=== PATIENT | male | born 1945 | race Caucasian/White ===

== ENCOUNTER 2020-05-28 12:41 | Outpatient (CLI) | payer MEDICARE, SELFPAY ==
--- NOTE | 2020-05-28 12:57 | ECHO_ITS ---
Patient Info Name: Bernardo Mclean Age: 75 years : 1945 Gender: Male Ht: 71 in Wt: 200 lbs BSA: 2.15 m2 HR: 55 bpm BP: 143 / 87 mmHg Technical Quality: Good Exam Date: 05/28/2020 1:14 PM Exam Location: [facility] Patient Status: Outpatient Admit Date: 05/28/2020 Staff Ordering Physician: Rayna Jackson NP Healthcare Advisory Services Manager: Jeaneth Calloway RDCS Attending Provider: Rayna Jackson NP Referring Physician: Manuel JOSE; Exam Type: CA echo doppler color flow Study Info Indications R01.1 - Cardiac murmur, unspecified Complete two-dimensional, color flow and Doppler transthoracic echocardiogram is performed. Summary 1. Complete two-dimensional, color flow and Doppler transthoracic echocardiogram is performed. 2. Left ventricular chamber dimension is normal. 3. Left ventricular systolic function is normal, estimated at 65-70%. 4. Ventricular septum is sigmoid shaped. 5. The left ventricular diastolic function is grade I diastolic dysfunction. 6. E/e' 15 is elevated. 7. Global longitudinal strain is mildly abnormal at -16.4%. 8. Left atrial chamber dimension is mildly enlarged. 9. There is severe aortic valve sclerosis. 10. There is mild aortic valve regurgitation. 11. There is moderate to severe aortic valve stenosis with a peak velocity of 272 cm/s, mean gradient of 16 mmHg, and aortic valve area of 1.0 cm2. By planimetry, NELL is 1.1 cm2. 12. The mitral valve has mildly calcified annulus. 13. There is trace mitral valve regurgitation. 14. There is trace tricuspid valve regurgitation. 15. No pulmonary hypertension, estimated pulmonary arterial systolic pressure is 25 mmHg. Left Ventricle Ventricular septum is sigmoid shaped. E/e' 15 is elevated. Global longitudinal strain is mildly abnormal at -16.4%. Left ventricular chamber dimension is normal. Left ventricular systolic function is normal, estimated at 65-70%. The left ventricular diastolic function is grade I diastolic dysfunction. Right Ventricle Right ventricular chamber dimension is normal. Right ventricular systolic function is normal. Left Atria Left atrial chamber dimension is mildly enlarged. Right Atria Right atrial chamber dimension is normal. Aortic Valve There is moderate to severe aortic valve stenosis with a peak velocity of 272 cm/s, mean gradient of 16 mmHg, and aortic valve area of 1.0 cm2. By planimetry, NELL is 1.1 cm2. The aortic valve is trileaflet. There is severe aortic valve sclerosis. There is mild aortic valve regurgitation. Pulmonic Valve There is no pulmonic regurgitation. Mitral Valve The mitral valve has mildly calcified annulus. There is no mitral valve stenosis. There is trace mitral valve regurgitation. Tricuspid Valve There is trace tricuspid valve regurgitation. No pulmonary hypertension, estimated pulmonary arterial systolic pressure is 25 mmHg. Pericardium/Pleural There is no pericardial effusion. Inferior Vena Cava Normal inferior vena cava with >50% collapse upon inspiration consistent with normal right atrial pressure, 5 mmHg. Aorta The aortic root size at the sinus of Valsalva is normal. Left Ventricular Outflow Tract Name Value Normal LVOT 2D LVOT Diameter
== END 2020-05-28 12:42 | disposition home or self-care (01) ==
PROVIDERS: PCP Nurse Practitioner; Visit Provider Nurse Practitioner
DX: R01.1 Cardiac murmur, unspecified (principal); I34.0 Nonrheumatic mitral (valve) insufficiency
CPT/HCPCS: 93306

== ENCOUNTER 2020-06-09 09:30 | Outpatient (CLI) | payer MEDICARE, SELFPAY ==
--- NOTE | ~2020-06-09 | US_ITS ---
EXAMINATION: US carotid duplex BI DATE: 06/09/2020 10:22 INDICATION: Left carotid bruit. TECHNIQUE: Grayscale, color Doppler, and pulsed Doppler images of the cervical carotid arteries were obtained. The degree of vessel stenosis is placed in one of the following categories: normal, <50%, 5 0-69%, >=70% but less than near-occlusion, near-occlusion, or total occlusion. Note that percent sten osis relative to normal distal artery lumen diameter is indirectly measured from velocity measurement s as described by Arturo, et al. Radiology 2003; 229:340-346. COMPARISON: Ultrasound 07/18/2007 FINDINGS: RIGHT: The right common carotid artery (CCA) peak systolic velocity (PSV) is 83 cm/s. The right internal car otid artery (ICA) PSV is 86 cm/s. The right ICA end-diastolic velocity (EDV) is 21 cm/s. The right IC A/CCA PSV ratio is 1.0. Grayscale and color Doppler images yield an estimate of <50% diameter reducti on from plaque in the ICA. There is antegrade flow in the right vertebral artery. LEFT: The left CCA PSV is 97 cm/s. The left ICA PSV is 68 cm/s. The left ICA EDV is 19 cm/s. The left ICA/C CA PSV ratio is 0.7. Grayscale and color Doppler images yield an estimate of <50% diameter reduction from plaque in the ICA. There is antegrade flow in the left vertebral artery. IMPRESSION: 1. <50% stenosis in the right internal carotid artery. 2. <50% stenosis in the left internal carotid artery. Reviewed, dictated and finalized at location A.
== END 2020-06-09 09:31 | disposition home or self-care (01) ==
LOC: ANHIMG 09:33
PROVIDERS: PCP Nurse Practitioner; Visit Provider Internal Medicine Cardiovascular Disease
DX: I65.23 Occlusion and stenosis of bilateral carotid arteries (principal)
CPT/HCPCS: 93880

== ENCOUNTER 2021-04-26 00:36 | Day surgery (SDC) | payer MEDICARE, SELFPAY ==
[2021-04-18 12:45] VITALS: BMI 27.8
[2021-04-26 10:05] VITALS: BP 113/70; PULSE 72; RESP 20; TEMP 36.2; O2SAT 99
[2021-04-26] MEDS: LACTATED RINGERS 1,000 ML 150 ML IV CONT (10:09)
--- NOTE | 2021-04-26 11:03 | WPDANESEPPF ---
Anes - Initial Pre Proc Eval Procedure: Operation Date: 04/26/21 11:30 Proposed Procedures p Screening Colonoscopy - Pino Betts MD Date/Time: 04/26/21 11:03 Surgeon: Pino Betts MD Pre Op Diagnosis: hx of colon ca Patient Data Age: 76 Gender: M Height: 1.8 m Weight: 86.2 kg Last Vital Signs Temp 97.2 F L 04/26/21 10:05 Pulse 72 04/26/21 10:05 Resp 20 04/26/21 10:05 BP 113/70 04/26/21 10:05 Pulse Ox 99 04/26/21 10:05 Allergies Allergy/AdvReac Type Severity Reaction Status Date / Time No Known Allergies Allergy Unverified 04/26/21 10:03 Home Medications Medication Instructions Recorded Confirmed Type omega-3 fatty acids 1,000 mg 1,000 mg PO DAILY 08/04/19 04/20/21 History capsule vitamin B complex 1 tablet PO DAILY 08/04/19 04/20/21 History cholecalciferol (vitamin D3) 25 25 mcg PO DAILY 11/30/20 04/20/21 History mcg (1,000 unit) capsule vitamins A,C,Y-ixyd-kezhyf 14,320 1 cap PO BID 11/30/20 04/20/21 History unit-226 mg-200 unit capsule atorvastatin 40 mg tablet 40 mg PO DAILY #90 tablet 01/27/21 04/20/21 Rx paroxetine HCl 10 mg tablet See Rx Instructions .ROUTE 01/28/21 04/20/21 Rx .COMPLEX #90 tablet Patient hx anesthesia problems: none Family hx anesthesia problems: none PMFSH Past Medical History Medical History Aortic stenosis Hyperlipidemia LDL goal <100 (~06/2016) Malignant neoplasm of rectum Vascular dementia (~02/2019) Vitamin B12 deficiency (~01/2017) Surgical History Surgical History H/O laminectomy (~02/27/17) H/O laminectomy (~06/08/15) History of back surgery (~01/2019) right L3-L4-L5 microdecompression for synovial cyst History of cataract removal with insertion of prosthetic lens (~2005) right History of cholecystectomy (~2002) History of enucleation of left eyeball (~194) History of rectal surgery (~1999) History of repair of rotator cuff History of vasectomy History of wisdom tooth extraction Hx of appendectomy Hx of colonoscopy (~08/09/16) Hx of hernia repair (~2007) Family History Family History Sibling Family history of pancreatic cancer, Onset Age: 65 Social History Social History Smoking status: Never smoker Second hand tobacco smoke exposure: No Alcohol intake: never Substance use: never Substance use type: does not use Living arrangements: with family Gender identity (if verbalized by the patient): Male Spiritual care concerns: No (Active in his [employer] vijay) Agree to blood products: Yes Anes - Eval Final PreProcedure Day of Procedure 04/26/21 11:03 Patient weight: normal Heart: regular rate and rhythm Lungs: clear to auscultation Airway: Mallampati scale class II Neurological: alert and oriented Last oral intake: >/= 8 hours ASA classification: III Emergent: no Anesthetic plan: proceed Anesthesia type and monitoring: general GIVS and standard monitoring Informed Consent: The patient's anesthetic plan and its attendant risks and benefits were discussed with the patient/family/POA. Questions were solicited and answers provided to the satisfaction of the patient/family/POA.
--- NOTE | 2021-04-26 11:42 | PM.HPGS ---
History of Present Illness History of Present Illness Consent: Risks, benefits, and alternatives have been discussed and questions answered. Patient agrees to proceed with procedure. Chief complaint: hx of colon ca Narrative: Bernardo Mclean is a 76 year old male with CRC 1999's, getting colonoscopies every 3 years. Review of Systems Constitutional: Constitutional: Denies headache(s) and Denies weakness Eyes: Eyes: Denies blurry vision ENT: Reports Normal hearing present, Denies headache(s) and Denies neck pain Cardiovascular: Cardiovascular: Denies chest pain and Denies dyspnea Respiratory: Respiratory: Denies dyspnea Gastrointestinal: Gastrointestinal: Reports no additional gastrointestinal complaints Genitourinary: Genitourinary: Denies dysuria Musculoskeletal: Musculoskeletal: Denies neck pain Integumentary/Breasts: Skin/Breast: Denies dry skin Neurologic: Reports Normal hearing present, Denies headache(s) and Denies weakness Psychiatric: Psychiatric: Denies anxiety Endocrine: Endocrine: Denies change in body appearance Hematologic/Lymphatic: Hematologic/Lymphatic: Denies easy bleeding Allergic/Immunologic: Allergic/Immunologic: Denies urticaria PMFSH Past Medical History Medical History Aortic stenosis Hyperlipidemia LDL goal <100 (~06/2016) Malignant neoplasm of rectum Vascular dementia (~02/2019) Vitamin B12 deficiency (~01/2017) Surgical History Surgical History H/O laminectomy (~02/27/17) H/O laminectomy (~06/08/15) History of back surgery (~01/2019) right L3-L4-L5 microdecompression for synovial cyst History of cataract removal with insertion of prosthetic lens (~2005) right History of cholecystectomy (~2002) History of enucleation of left eyeball (~1947) History of rectal surgery (~1999) History of repair of rotator cuff History of vasectomy History of wisdom tooth extraction Hx of appendectomy Hx of colonoscopy (~08/09/16) Hx of hernia repair (~2007) Family History Family History Sibling Family history of pancreatic cancer, Onset Age: 65 Social History Social History Smoking status: Never smoker Second hand tobacco smoke exposure: No Alcohol intake: never Substance use: never Substance use type: does not use Living arrangements: with family Gender identity (if verbalized by the patient): Male Spiritual care concerns: No (Active in his [employer] vijay) Agree to blood products: Yes Meds Home Medications and Allergies Home Medications Medication Instructions Recorded Confirmed Type omega-3 fatty acids 1,000 mg 1,000 mg PO DAILY 08/04/19 04/20/21 History capsule vitamin B complex 1 tablet PO DAILY 08/04/19 04/20/21 History cholecalciferol (vitamin D3) 25 25 mcg PO DAILY 11/30/20 04/20/21 History mcg (1,000 unit) capsule vitamins A,C,L-ixaf-ecsfmd 14,320 1 cap PO BID 11/30/20 04/20/21 History unit-226 mg-200 unit capsule atorvastatin 40 mg tablet 40 mg PO DAILY #90 tablet 01/27/21 04/20/21 Rx paroxetine HCl 10 mg tablet See Rx Instructions .ROUTE 01/28/21 04/20/21 Rx .COMPLEX #90 tablet Allergies Allergy/AdvReac Type Severity Reaction Status Date / Time No Known Allergies Allergy Unverified 04/26/21 10:03 Vital Signs Vital Signs - 24 hr 04/26/21 10:05 Temperature 97.2 F L Pulse Rate 72 Respiratory Rate 20 Blood Pressure 113/70 Pulse Oximetry 99 Exam Const: General: comfortable and no acute distress HENMT: General nose exam: Normal nares present Eyes: General: appearance normal, both eyes and all related structures Neck: Neck: no JVD Resp: Auscultation: clear to auscultation bilaterally Cardio: Rate: regular rate Rhythm: regular rhythm GI: Inspection: non-distended GI Palp: Yes Soft to palpat
[2021-04-26 12:08] VITALS: BP 119/66; PULSE 59; RESP 13; O2SAT 97
[2021-04-26 12:18] VITALS: BP 119/72; PULSE 59; RESP 20; O2SAT 97
[2021-04-26 12:28] VITALS: BP 127/68; PULSE 56; RESP 24; O2SAT 97
== END 2021-04-26 12:49 | disposition home or self-care (01) ==
PROVIDERS: PCP Nurse Practitioner; Visit Provider Internal Medicine Gastroenterology
PROC: 0DJD8ZZ Inspection of Lower Intestinal Tract, Via Natural or Artificial Opening Endoscopic (ICD-10-PCS; CPT 45378; principal; 2021-04-26 11:30)
DX: Z12.11 Encounter for screening for malignant neoplasm of colon (principal); D12.3 Benign neoplasm of transverse colon; I35.0 Nonrheumatic aortic (valve) stenosis; E78.5 Hyperlipidemia, unspecified; E53.8 Deficiency of other specified B group vitamins; F01.50 Vascular dementia, unspecified severity, without behavioral disturbance, psychotic disturbance, mood disturbance, and anxiety; Z85.038 Personal history of other malignant neoplasm of large intestine; Z98.41 Cataract extraction status, right eye; Z96.1 Presence of intraocular lens; Z90.49 Acquired absence of other specified parts of digestive tract; Z90.01 Acquired absence of eye
CPT/HCPCS: 45385; 88305; J2001; J2704; J7120

== ENCOUNTER 2021-06-02 12:01 | Outpatient (CLI) | payer MEDICARE, SELFPAY ==
--- NOTE | 2021-06-02 12:44 | ECHO_ITS ---
Patient Info Name: Bernardo Mclean Age: 76 years : 1945 Gender: Male Ht: 71 in Wt: 195 lbs BSA: 2.12 m2 HR: 69 bpm BP: 131 / 84 mmHg Heart Rhythm: Sinus Rhythm Exam Date: 06/02/2021 12:55 PM Exam Location: [facility] Patient Status: Outpatient Admit Date: 06/02/2021 Staff Ordering Physician: Eben Fried DO Attending Provider: Eben Fried DO Referring Physician: Corky JAMES; Exam Type: CA echo doppler color flow Study Info Indications I35.0 - Nonrheumatic aortic (valve) stenosis Complete two-dimensional, color flow and Doppler transthoracic echocardiogram is performed. Summary 1. Complete two-dimensional, color flow and Doppler transthoracic echocardiogram is performed. 2. Left ventricular chamber dimension is normal. 3. Left ventricular systolic function is normal, estimated at 60-65%. 4. The left ventricular diastolic function is grade I diastolic dysfunction. 5. E/e' 17 is elevated. 6. Left atrial chamber dimension is mildly enlarged. 7. There is severe aortic valve sclerosis. 8. There is moderate to severe aortic valve stenosis with a peak velocity of 314 cm/s, mean gradient of 22 mmHg, and aortic valve area of 0.9 cm2. 9. There is trace aortic valve regurgitation. 10. No pulmonary hypertension, estimated pulmonary arterial systolic pressure is 16 mmHg. Left Ventricle E/e' 17 is elevated. Left ventricular chamber dimension is normal. Left ventricular systolic function is normal, estimated at 60-65%. The left ventricular diastolic function is grade I diastolic dysfunction. Right Ventricle Right ventricular chamber dimension is normal. Right ventricular systolic function is normal. Left Atria Left atrial chamber dimension is mildly enlarged. Right Atria Right atrial chamber dimension is normal. Aortic Valve The aortic valve is trileaflet. There is severe aortic valve sclerosis. There is moderate to severe aortic valve stenosis with a peak velocity of 314 cm/s, mean gradient of 22 mmHg, and aortic valve area of 0.9 cm2. There is trace aortic valve regurgitation. Pulmonic Valve There is no pulmonic regurgitation. Mitral Valve There is no mitral valve stenosis. There is no mitral valve regurgitation. Tricuspid Valve There is no tricuspid valve regurgitation. No pulmonary hypertension, estimated pulmonary arterial systolic pressure is 16 mmHg. Pericardium/Pleural There is no pericardial effusion. Inferior Vena Cava Normal inferior vena cava with >50% collapse upon inspiration consistent with normal right atrial pressure, 5 mmHg. Aorta The aortic root size at the sinus of Valsalva is normal. Left Ventricular Outflow Tract Name Value Normal LVOT 2D LVOT Diameter 1.9 cm LVOT Doppler LVOT Peak Gradient 4 mmHg LVOT Mean Gradient 2 mmHg LVOT VTI 26 cm LVOT VTI/AV VTI Ratio 0.3 LVOT Stroke Volume 74 ml LVOT CO 3.7 l/min LVOT CI 1.7 l/min/m2
== END 2021-06-02 12:02 | disposition home or self-care (01) ==
PROVIDERS: PCP Nurse Practitioner; Visit Provider Internal Medicine Cardiovascular Disease
DX: I35.0 Nonrheumatic aortic (valve) stenosis (principal); I70.0 Atherosclerosis of aorta
CPT/HCPCS: 93306

== ENCOUNTER 2022-06-05 08:05 | Outpatient (CLI) | payer MEDICARE, SELFPAY ==
--- NOTE | 2022-06-05 08:13 | ECHO_ITS ---
Patient Info Name: Chad Mclean Age: 77 years : 1945 Gender: Male Ht: 71 in Wt: 200 lbs BSA: 2.15 m2 HR: 59 bpm BP: 148 / 91 mmHg Technical Quality: Good Exam Date: 06/05/2022 8:42 AM Exam Location: [facility] Patient Status: Outpatient Admit Date: 06/05/2022 Staff Ordering Physician: Eben Fried DO Sausage Cutter: Chaka Flores RDCS, RT Attending Provider: Eben Fried DO Referring Physician: Corky JAMES; Exam Type: CA echo dop color flow w con Study Info Indications I35.0 - Nonrheumatic aortic (valve) stenosis Complete two-dimensional, color flow and Doppler transthoracic echocardiogram is performed. Strain analysis performed. Summary 1. Complete two-dimensional, color flow and Doppler transthoracic echocardiogram is performed. 2. Left ventricular chamber dimension is normal. 3. Left ventricular systolic function is normal, estimated at 60-65%. 4. There is moderately increased left ventricular wall thickness. 5. The left ventricular diastolic function is grade I diastolic dysfunction. 6. E/e' 16 is elevated. 7. Global longitudinal strain is normal at -18.5%. 8. There is severe aortic valve sclerosis. 9. There is moderate to severe aortic valve stenosis with a peak velocity of 311.69 cm/s, mean gradient of 19 mmHg, and aortic valve area of 1.05 cm2. 10. There is mild aortic valve regurgitation. 11. The mitral valve has mildly calcified annulus. 12. There is trace mitral valve regurgitation. 13. There is trace tricuspid valve regurgitation. Left Ventricle E/e' 16 is elevated. Global longitudinal strain is normal at -18.5%. Left ventricular chamber dimension is normal. Left ventricular systolic function is normal, estimated at 60-65%. There is moderately increased left ventricular wall thickness. The left ventricular diastolic function is grade I diastolic dysfunction. Right Ventricle Right ventricular systolic function is normal and with normal TAPSE 2.2 cm. Right ventricular chamber dimension is normal. Left Atria Left atrial chamber dimension is normal. Right Atria Right atrial chamber dimension is normal. Aortic Valve The aortic valve is probable trileaflet. There is severe aortic valve sclerosis. There is moderate to severe aortic valve stenosis with a peak velocity of 311.69 cm/s, mean gradient of 19 mmHg, and aortic valve area of 1.05 cm2. There is mild aortic valve regurgitation. Pulmonic Valve There is no pulmonic regurgitation. Mitral Valve The mitral valve has mildly calcified annulus. There is no mitral valve stenosis. There is trace mitral valve regurgitation. Tricuspid Valve RVSP is not calculated due to an inadequate TR jet. There is trace tricuspid valve regurgitation. Pericardium/Pleural There is no pericardial effusion. Inferior Vena Cava Inferior vena cava is not well visualized. Aorta The aortic root size at the sinus of Valsalva is normal. Left Ventricular Outflow Tract Name Value Normal LVOT 2D LVOT Diameter 2.05 cm LVOT Doppler LVOT Peak Gradient 3 mmHg LVOT Mean Gradient 1 mmHg
== END 2022-06-05 08:06 | disposition home or self-care (01) ==
LOC: ANHCARD 08:07
PROVIDERS: PCP Nurse Practitioner; Visit Provider Internal Medicine Cardiovascular Disease
DX: R07.89 Other chest pain (principal); I35.0 Nonrheumatic aortic (valve) stenosis; I35.1 Nonrheumatic aortic (valve) insufficiency; I70.0 Atherosclerosis of aorta
CPT/HCPCS: 93306

== ENCOUNTER 2023-01-22 12:25 | Outpatient (CLI) | payer MEDICARE, SELFPAY ==
--- NOTE | 2023-01-22 12:43 | ECHO_ITS ---
Patient Info Name: Chad Mclean Age: 77 years : 1945 Gender: Male Ht: 71 in Wt: 195 lbs BSA: 2.12 m2 HR: 56 bpm BP: 143 / 75 mmHg Heart Rhythm: Sinus Rhythm Technical Quality: Good Exam Date: 01/22/2023 12:49 PM Exam Location: [facility] Patient Status: Outpatient Admit Date: 01/22/2023 Staff Ordering Physician: Eben Fried DO Presiding Steward: Luly Tomlinson RDCS Attending Provider: Eben Fried DO Referring Physician: Corky JAMES; Exam Type: CA echo doppler color flow Study Info Indications I35.0 - Nonrheumatic aortic (valve) stenosis Complete two-dimensional, color flow and Doppler transthoracic echocardiogram is performed. Summary 1. Complete two-dimensional, color flow and Doppler transthoracic echocardiogram is performed. 2. Left ventricular chamber dimension is normal. 3. Left ventricular systolic function is normal, estimated at 65-70%. 4. There is mild concentric increased left ventricular wall thickness. 5. The left ventricular diastolic function is grade I diastolic dysfunction. 6. E/e' 18 is elevated. 7. There is severe aortic valve sclerosis. 8. There is moderate to severe aortic valve stenosis with a peak velocity of 341 cm/s, mean gradient of 24 mmHg, and aortic valve area of 0.9 cm2. 9. There is mild aortic valve regurgitation. 10. There is mild mitral valve regurgitation. 11. There is trace tricuspid valve regurgitation. Left Ventricle E/e' 18 is elevated. Left ventricular chamber dimension is normal. Left ventricular systolic function is normal, estimated at 65-70%. There is mild concentric increased left ventricular wall thickness. The left ventricular diastolic function is grade I diastolic dysfunction. Right Ventricle Right ventricular systolic function is normal and with normal TAPSE 1.9 cm. Right ventricular chamber dimension is normal. Left Atria Left atrial chamber dimension is normal. Right Atria Right atrial chamber dimension is normal. Aortic Valve The aortic valve is trileaflet. There is severe aortic valve sclerosis. There is moderate to severe aortic valve stenosis with a peak velocity of 341 cm/s, mean gradient of 24 mmHg, and aortic valve area of 0.9 cm2. There is mild aortic valve regurgitation. Pulmonic Valve There is no pulmonic regurgitation. Mitral Valve There is no mitral valve stenosis. There is mild mitral valve regurgitation. Tricuspid Valve RVSP is not calculated due to an inadequate TR jet. There is trace tricuspid valve regurgitation. Pericardium/Pleural There is no pericardial effusion. Inferior Vena Cava Normal inferior vena cava with >50% collapse upon inspiration consistent with normal right atrial pressure, 5 mmHg. Aorta The aortic root size at the sinus of Valsalva is normal. Left Ventricular Outflow Tract Name Value Normal LVOT 2D LVOT Diameter 2.0 cm LVOT Doppler LVOT Peak Gradient 4 mmHg LVOT Mean Gradient 2 mmHg LVOT VTI 24 cm LVOT VTI/AV VTI Ratio 0.3 LVOT Stroke Volume 72 ml LVOT CO 3.9 l/min LVOT CI
== END 2023-01-22 12:26 | disposition home or self-care (01) ==
PROVIDERS: PCP Family Medicine; Visit Provider Internal Medicine Cardiovascular Disease
DX: I35.0 Nonrheumatic aortic (valve) stenosis (principal); I35.1 Nonrheumatic aortic (valve) insufficiency; I34.0 Nonrheumatic mitral (valve) insufficiency
CPT/HCPCS: 93306

== ENCOUNTER 2023-06-04 10:06 | Outpatient (CLI) | payer MEDICARE, SELFPAY ==
[2023-06-04 18:45] LABS: Alanine Aminotransferase 26 U/L (6-50); Alkaline Phosphatase 80 U/L (38-126); Anion Gap 4 mmol/L (8-16); Aspartate Amino Transferase 30 U/L (17-59); Blood Urea Nitrogen 14 mg/dL (9-20); Calcium 8.9 mg/dL (8.4-10.2); Carbon Dioxide 30 mmol/L (22-30); Chloride 103 mmol/L (98-107); Cholesterol 156 mg/dL (0-200); Estimated Glomerular Filt Rate > 60; Glucose 94 mg/dL (65-110); HDL Direct 33 mg/dL; Potassium 4.8 mmol/L (3.4-5.0); Sodium 137 mmol/L (137-145); Triglycerides 135 mg/dL (<150)
[2023-06-04 18:57] LABS: LDL Cholesterol Direct 99 mg/dL
[2023-06-04 19:27] LABS: Hemoglobin A1C 5.4 % (<5.7)
[2023-06-04 19:39] LABS: Vitamin D 25 Hydroxy 53.7 ng/mL
[2023-06-04 19:43] LABS: Basophils Absolute Auto 0.1 K/mm3 (0.0-0.1); Eosinophils Absolute Auto 0.1 K/mm3 (0-0.3); Eosinophils Percent Auto 2.1 % (0-4.4); Hematocrit 47.2 % (42.0-52.0); Hemoglobin 15.4 g/dL (14.0-18.0); Immature Granulocyte Absolute 0.02 K/mm3 (0.00-0.031); Immature Granulocyte Percent A 0.3 % (0-0.5); Lymphocytes Absolute Auto 1.93 K/mm3 (0.9-3.2); Lymphocytes Percent Auto 28.3 % (18.3-44.2); Mean Corpuscular HGB Conc 32.6 g/dl (32-36); Mean Corpuscular Hemoglobin 31.4 pg (26-34); Mean Corpuscular Volume 96.3 fl (80-100); Mean Platelet Volume 10.5 fl (7.4-10.4); Monocytes Absolute Auto 0.9 K/mm3 (0.1-0.6); Monocytes Percent Auto 12.6 % (2.6-8.5); Neutrophils Absolute Auto 3.8 K/mm3 (1.3-6.7); Neutrophils Percent Auto 55.7 % (45.5-73.1); Platelet Count Result 225 k/mm3 (150-375); Red Cell Distribution Width 13.1 % (11.5-14.5); White Blood Count 6.8 K/mm3 (4.5-10.0)
== END 2023-06-04 10:07 | disposition home or self-care (01) ==
PROVIDERS: PCP Family Medicine; Visit Provider Nurse Practitioner Family
DX: E53.8 Deficiency of other specified B group vitamins (principal); E78.5 Hyperlipidemia, unspecified; I10 Essential (primary) hypertension; I35.0 Nonrheumatic aortic (valve) stenosis; R09.89 Other specified symptoms and signs involving the circulatory and respiratory systems; Z13.1 Encounter for screening for diabetes mellitus; Z13.21 Encounter for screening for nutritional disorder; Z13.220 Encounter for screening for lipoid disorders; Z13.29 Encounter for screening for other suspected endocrine disorder
CPT/HCPCS: 36415; 80053; 80061; 82306; 82607; 83036; 84443; 85025

== ENCOUNTER 2023-10-03 17:32 | Emergency (ER) | payer MEDICARE, SELFPAY ==
[2023-10-03] VITALS (17 sets, daily range): BP systolic 113–149; BP diastolic 65–86; PULSE 63–69; RESP 14–22; TEMP 36.4; O2SAT 93–98
--- NOTE | ~2023-10-03 | XR_ITS ---
EXAMINATION: XR chest 1V portable DATE: 10/03/2023 19:59 INDICATION: Fall. TECHNIQUE: A single frontal view of the chest was obtained on 2 radiographs. COMPARISON: Chest 2 views 01/31/2011 FINDINGS: There is mild atelectasis in left lower lung zone. No pleural effusion or pneumothorax. The heart size is normal. IMPRESSION: 1. Mild atelectasis in left lower lung zone. Reviewed, dictated and finalized at location E. BILITATION CASE COORDINATOR
--- NOTE | ~2023-10-03 | CT_ITS ---
EXAMINATION: CT brain wo con DATE: 10/03/2023 19:34 INDICATION: Fall. TECHNIQUE: Computed tomography (CT) of the head was performed without intravenous contrast. The mA wa s adjusted according to patient size. Iterative reconstruction technique was employed. The dose-lengt h product was 605.33 mGy-cm. COMPARISON: Head CT 02/15/2018, brain MRI 08/19/2019 FINDINGS: There are scattered areas of low attenuation in the cerebral white matter. There is no intr acranial hemorrhage, acute infarction, or abnormal intracranial mass lesion. The ventricles are stevan l in size. There are likely changes of right ocular lens replacement surgery. Left ocular globe is ab sent. There is mild mucosal thickening in the paranasal sinuses. The mastoid air cells are normal. IMPRESSION: 1. Extensive nonspecific cerebral white matter disease, which likely represents chronic small vessel ischemic disease, worsened from 02/15/2018. Reviewed, dictated and finalized at location E. [facility]
--- NOTE | 2023-10-03 18:39 | ED.GENADULT ---
HPI - General Adult General Chief complaint: Unspecified Stated complaint: glf,weak since taking 's carbamazepine this am Time Seen by Provider: 10/03/23 18:26 Source: patient Mode of arrival: ambulatory Limitations: no limitations History of Present Illness HPI narrative: This is a 78-year-old male with PMH dementia, aortic stenosis who arrives to the ED via EMS for chief complaint of ground level fall. His is here and was with the patient today she reports that he accidentally took too for carbamazepine 400 mg pills today around 9:00 a.m.. She reports today around 5:00 p.m. this when he had a fall in the other room. She did not witness it but saw that he was able to pull himself up to the bed. She states he has any seems very wobbly on his feet and weak. Patient states that he remembers the fall and does report becoming weak. Denies any head injury, LOC or any sign of pain or injury. Family states that he is at his mental status baseline. Related Data Home Medications Medication Instructions Recorded Confirmed omega-3 fatty acids 1,000 mg 1,000 mg PO DAILY 08/04/19 06/15/23 capsule (Fish Oil Concentrate) vitamin B complex (B 1 tablet PO DAILY 08/04/19 06/15/23 Complex-Vitamin B12 tablet) cholecalciferol (vitamin D3) 25 25 mcg PO DAILY 11/30/20 06/15/23 mcg (1,000 unit) capsule vitamins A,C,R-qofq-qxmoii 4,296 1 cap PO BID 11/30/20 06/15/23 mcg-226 mg-90 mg capsule (PreserVision AREDS) Allergies Allergy/AdvReac Type Severity Reaction Status Date / Time No Known Allergies Allergy Verified 06/15/23 08:47 Review of Systems Review of Systems: All systems as dictated in [facility] Past Medical History Medical History Anxiety Aortic stenosis Hyperlipidemia LDL goal <100 (~06/2016) Malignant neoplasm of rectum Obesity Vascular dementia (~02/2019) Vitamin B12 deficiency (~01/2017) Surgical History Surgical History H/O laminectomy (~02/27/17) H/O laminectomy (~06/08/15) History of back surgery (~01/2019) right L3-L4-L5 microdecompression for synovial cyst History of cataract removal with insertion of prosthetic lens (~2005) right History of cholecystectomy (~2002) History of enucleation of left eyeball (~1946) History of rectal surgery (~1999) History of repair of rotator cuff History of vasectomy History of wisdom tooth extraction Hx of appendectomy Hx of colonoscopy (~08/09/16) Hx of hernia repair (~2007) Family History Family History Sibling Family history of pancreatic cancer, Onset Age: 65 Social History Social History Social History: Caffeine-coffee/soda Smoking status: Never smoker Second hand tobacco smoke exposure: No Alcohol intake: never Substance use: never Substance use type: does not use Lack of Transportation: No Lack of Food: Never True Current Housing: I Have Housing Concerned About Future Housing: No Difficulty Paying Gas/Electric Bills: No Difficulty Paying for Meds: No Currently Unemployed: No Difficulty w/ Childcare or Family Care: No Living arrangements: with family Occupation/Education: retired Gender identity (if verbalized by the patient): Male Sexual Orientation (if Verbalized by the Patient): Straight or Heterosexual Spiritual care concerns: No (Active in his [employer] vij[employer]) Agree to blood products: Yes Exam Narrative: GENERAL: Well-appearing, well-nourished, and in no acute distress. HEAD: Normocephalic, atraumatic. EYES: PERRLA and EOMI. ENT: Nares clear, no rhinorrhea or epistaxis. Mucous membranes moist. Oropharynx without tonsillar hypertrophy exudate or other lesions. NECK: Supple. No adenopathy or masses. CHEST: No respiratory distress. Clear to auscultation. No whe
--- NOTE | 2023-10-03 19:05 | PC.NURSE ---
Poison control case #[id number] Dory, pharmacist for poison control, states the peak effects of the medicine is 4-12 hours. She stated there were no interventions, to monitor the pt for dizziness, drowsiness, headache, nausea, and vomiting. BRITTANY Marte aware.
--- NOTE | 2023-10-03 19:15 | PC.NURSE ---
Assumed care of pt. Report from NILDA Vogt. Pt resting quietly with family at bedside. Awaiting bloodwork and scan.
[2023-10-03 19:43] LABS: Basophils Percent Auto 0.3 % (0.2-1.2); Eosinophils Percent Auto 0.3 % (0-4.4); Hematocrit 44.9 % (42.0-52.0); Hemoglobin 14.6 g/dL (14.0-18.0); Immature Granulocyte Absolute 0.05 K/mm3 (0.00-0.031); Immature Granulocyte Percent A 0.4 % (0-0.5); Lymphocytes Absolute Auto 1.12 K/mm3 (0.9-3.2); Mean Corpuscular HGB Conc 32.5 g/dl (32-36); Mean Corpuscular Hemoglobin 31.5 pg (26-34); Mean Platelet Volume 9.6 fl (7.4-10.4); Monocytes Percent Auto 7.1 % (2.6-8.5); Neutrophils Absolute Auto 11.8 K/mm3 (1.3-6.7); Neutrophils Percent Auto 83.9 % (45.5-73.1); Platelet Count Result 202 k/mm3 (150-375); Red Blood Count 4.63 M/mm3 (4.6-6.20); Red Cell Distribution Width 13.4 % (11.5-14.5)
--- NOTE | 2023-10-03 19:46 | ECG_ITS ---
Measurements Intervals [place] Rate: 65 P: 31 KS: 197 QRS: -10 QRSD: 103 T: 47 QT: 426 QTc: 445 Interpretive Statements SINUS RHYTHM VOLTAGE CRITERIA FOR LVH BORDERLINE R WAVE PROGRESSION, ANTERIOR LEADS BASELINE ARTIFACT- I, III, AVL BORDERLINE ECG NO PREVIOUS ECG AVAILABLE FOR COMPARISON Electronically Signed On 10-04-2023 6:31:47 ZINC ETCHER by Eben Fried D.O.
[2023-10-03 19:55] LABS: Alanine Aminotransferase 23 U/L (6-50); Albumin Level 3.6 g/dL (3.5-5.1); Alkaline Phosphatase 68 U/L (38-126); Anion Gap 8 mmol/L (8-16); Aspartate Amino Transferase 34 U/L (17-59); Bilirubin,Total 0.5 mg/dL (0.2-1.3); Blood Urea Nitrogen 17 mg/dL (9-20); Calcium 8.6 mg/dL (8.4-10.2); Carbon Dioxide 25 mmol/L (22-30); Chloride 105 mmol/L (98-107); Estimated CRCL calculation 62 ml/min; Estimated Glomerular Filt Rate > 60; Glucose 138 mg/dL (65-110); Sodium 138 mmol/L (137-145)
--- NOTE | 2023-10-03 22:15 | PC.NURSE ---
Pt ambulatory with walker with steady gait. Has a rollator at home he should use as well.
== END 2023-10-03 22:15 | disposition home or self-care (01) ==
PROVIDERS: Emergency Provider Physician Assistant; PCP Family Medicine
DX: T42.1X1A Poisoning by iminostilbenes, accidental (unintentional), initial encounter (principal); F41.9 Anxiety disorder, unspecified; E78.5 Hyperlipidemia, unspecified; Z85.048 Personal history of other malignant neoplasm of rectum, rectosigmoid junction, and anus; I35.0 Nonrheumatic aortic (valve) stenosis
CPT/HCPCS: 36415; 70450; 71045; 80053; 85025; 93005; 99284

== ENCOUNTER 2024-01-22 14:17 | Outpatient (CLI) | payer MEDICARE, SELFPAY ==
--- NOTE | 2024-01-22 14:47 | ECHO_ITS ---
Patient Info Name: Chad Mclean Age: 78 years : 1945 Gender: Male Ht: 71 in Wt: 200 lbs BSA: 2.15 m2 HR: 69 bpm BP: 129 / 82 mmHg Heart Rhythm: Sinus Rhythm Technical Quality: Fair Exam Date: 01/22/2024 2:52 PM Exam Location: Echo Lab Patient Status: Outpatient Admit Date: 01/22/2024 Staff Ordering Physician: Eben Fried DO Development Advisor: Michaela Rodriguez RDCS Attending Provider: Eben Fried DO Referring Physician: Corky JAMES; Exam Type: CA echo doppler color flow Study Info Indications I35.0 - Nonrheumatic aortic (valve) stenosis Complete two-dimensional, color flow and Doppler transthoracic echocardiogram is performed. Summary 1. Complete two-dimensional, color flow and Doppler transthoracic echocardiogram is performed. 2. Left ventricular chamber dimension is normal. 3. Left ventricular systolic function is normal, estimated at 65-70%. 4. There is mild concentric increased left ventricular wall thickness. 5. The left ventricular diastolic function is grade I diastolic dysfunction. 6. E/e' 20 is elevated. 7. Left atrial chamber dimension is moderately enlarged. 8. The aortic valve is not well visualized. Cannot determine number of aortic valve leaflets. 9. There is moderate to severe aortic valve stenosis with valve area of 1.0 cm2, mean gradient 31 mmHg and peak velocity of 3.5 m/s. 10. There is severe aortic valve sclerosis. 11. There is mild aortic valve regurgitation. 12. There is trace mitral valve regurgitation. 13. There is trace tricuspid valve regurgitation. Left Ventricle E/e' 20 is elevated. Left ventricular chamber dimension is normal. Left ventricular systolic function is normal, estimated at 65-70%. There is mild concentric increased left ventricular wall thickness. The left ventricular diastolic function is grade I diastolic dysfunction. Right Ventricle Right ventricular systolic function is normal and with normal TAPSE 2.0 cm. Right ventricular chamber dimension is normal. Left Atria Left atrial chamber dimension is moderately enlarged. Right Atria Right atrial chamber dimension is normal. Aortic Valve The aortic valve is not well visualized. Cannot determine number of aortic valve leaflets. There is moderate to severe aortic valve stenosis with valve area of 1.0 cm2, mean gradient 31 mmHg and peak velocity of 3.5 m/s. There is severe aortic valve sclerosis. There is mild aortic valve regurgitation. Pulmonic Valve There is no pulmonic regurgitation. Mitral Valve There is no mitral valve stenosis. There is trace mitral valve regurgitation. Tricuspid Valve RVSP is not calculated due to an inadequate TR jet. There is trace tricuspid valve regurgitation. Pericardium/Pleural There is no pericardial effusion. Inferior Vena Cava Normal inferior vena cava with >50% collapse upon inspiration consistent with normal right atrial pressure, 5 mmHg. Aorta The aortic root size at the sinus of Valsalva is normal. Tricuspid Valve Name Value Normal Estimated PAP/RSVP RA Pressure 5 mmHg <=5 Report Signatures
== END 2024-01-22 14:18 | disposition home or self-care (01) ==
LOC: ANHCARD 14:19
PROVIDERS: PCP Family Medicine; Visit Provider Internal Medicine Cardiovascular Disease
DX: I35.0 Nonrheumatic aortic (valve) stenosis (principal)
CPT/HCPCS: 93306

== ENCOUNTER 2024-04-04 08:23 | Outpatient (CLI) | payer MEDICARE, SELFPAY ==
--- NOTE | ~2024-04-04 | MR_ITS ---
EXAMINATION: MR brain/brain stem wo con DATE: 04/04/2024 09:31 INDICATION: R26.81 - Unsteadiness on feet TECHNIQUE: Magnetic resonance imaging (MRI) of the brain and brainstem was performed without intraven ous contrast. Sequences included sagittal and axial T1-weighted SE, axial diffusion-weighted FS EPI A SSET, axial T2*-weighted GRE, axial T2-weighted FLAIR Propeller, and axial T2-weighted Propeller. Pos tcontrast axial and coronal T1-weighted SE was obtained. Apparent diffusion coefficient (ADC) maps we re created. COMPARISON: 08/19/2019; CT brain 10/03/2023 FINDINGS: No abnormal restricted diffusion to suggest acute ischemic infarct. No MRI evidence of hemorrhage or extra-axial collection. No suspicious foci of susceptibility to suggest prior intraparenchymal hemorr varun. Severe confluent or patchy and confluent white matter hyperintensity, likely representing sever en small vessel ischemic disease. Mild generalized parenchymal volume loss. The basilar cisterns are patent. Flow voids are preserved. Paranasal sinuses are within normal limits. Left eye prosthesis. Ri ght lens replacement. IMPRESSION: No acute intracerebral process. Mild atrophy and severe chronic white matter change. Reviewed, dictated and finalized at location K. IMPRESSION: No acute intracerebral process. Mild atrophy and severe chronic white matter ch heath.
== END 2024-04-04 08:24 | disposition home or self-care (01) ==
PROVIDERS: PCP Family Medicine; Visit Provider Nurse Practitioner Family
DX: G31.9 Degenerative disease of nervous system, unspecified (principal); R90.82 White matter disease, unspecified; F01.50 Vascular dementia, unspecified severity, without behavioral disturbance, psychotic disturbance, mood disturbance, and anxiety; I73.9 Peripheral vascular disease, unspecified
CPT/HCPCS: 70551

== ENCOUNTER 2024-05-09 08:02 | Outpatient (CLI) | payer MEDICARE, SELFPAY ==
--- NOTE | ~2024-05-09 | CT_ITS ---
Clinical Indication: Abnormal weight loss CT Scan of the Chest, Abdomen, and Pelvis with Contrast: Technique: Contiguous sections were acquired throughout the chest, abdomen, and pelvis after intraven ous administration of 100 cc of Omnipaque 350. Dose reduction technique was used on this scan by everton sarkar automated exposure control and iterative reconstruction technique. The dose-length product (DL P) was 1190.67 mGy-cm. Findings: There is no evidence of any significant mediastinal, hilar or axillary lymphadenopathy. The mediastin al soft tissues appear normal. There is no evidence of pleural or pericardial effusion. The lungs are clear. No pulmonary nodules or infiltrates are noted. The liver, spleen, pancreas, adrenals and kidneys are within normal limits. Cholecystectomy clips are present. There are atherosclerotic calcifications of the aorta. No lymphadenopathy. No bowel obstruction or bowel wall thickening. There is no evidence to suggest acute appendicitis. Urinary bladder is unremarkable. No pelvic mass seen. Penile implant present. There is extensive dege nerative change of the lumbar spine with posterior fusion from L3 through S1. Impression: No significant abnormality seen. Reviewed, dictated and finalized at [facility]. Impression: No significant abnormality seen.
[2024-05-09 07:43] LABS: Estimated Glomerular Filt Rate > 60
[2024-05-09 08:59] LABS: Basophils Absolute Auto 0.1 K/mm3 (0.0-0.1); Basophils Percent Auto 0.8 % (0.2-1.2); Eosinophils Absolute Auto 0.1 K/mm3 (0-0.3); Eosinophils Percent Auto 1.6 % (0-4.4); Hematocrit 46.7 % (42.0-52.0); Hemoglobin 15.1 g/dL (14.0-18.0); Immature Granulocyte Absolute 0.06 K/mm3 (0.00-0.031); Immature Granulocyte Percent A 0.8 % (0-0.5); Lymphocytes Absolute Auto 2.03 K/mm3 (0.9-3.2); Lymphocytes Percent Auto 25.6 % (18.3-44.2); Mean Corpuscular HGB Conc 32.3 g/dl (32-36); Mean Corpuscular Hemoglobin 31.5 pg (26-34); Mean Corpuscular Volume 97.5 fl (80-100); Mean Platelet Volume 9.9 fl (7.4-10.4); Monocytes Absolute Auto 0.9 K/mm3 (0.1-0.6); Monocytes Percent Auto 11.3 % (2.6-8.5); Neutrophils Absolute Auto 4.8 K/mm3 (1.3-6.7); Neutrophils Percent Auto 59.9 % (45.5-73.1); Platelet Count Result 217 k/mm3 (150-375); Red Blood Count 4.79 M/mm3 (4.6-6.20); Red Cell Distribution Width 12.9 % (11.5-14.5); White Blood Count 7.9 K/mm3 (4.5-10.0)
[2024-05-09 09:27] LABS: Alanine Aminotransferase 27 U/L (6-50); Albumin Level 3.8 g/dL (3.5-5.1); Alkaline Phosphatase 79 U/L (38-126); Anion Gap 9 mmol/L (4-12); Aspartate Amino Transferase 24 U/L (17-59); Bilirubin,Total 0.6 mg/dL (0.2-1.3); Blood Urea Nitrogen 16 mg/dL (9-20); CRP < 0.5 mg/dL (<1.0); Calcium 8.6 mg/dL (8.4-10.2); Carbon Dioxide 28 mmol/L (22-30); Chloride 101 mmol/L (98-107); Estimated Glomerular Filt Rate > 60; Glucose 88 mg/dL (65-110); Potassium 4.3 mmol/L (3.4-5.0); Sodium 138 mmol/L (137-145)
[2024-05-09 09:42] LABS: Erythrocyte Sedimentation Rate 16 mm/hr (0-20)
[2024-05-09 10:05] LABS: Free T4 Free Thyroxine 0.91 ng/mL (0.78-2.19); Vitamin D 25 Hydroxy 44.9 ng/mL
[2024-05-09 10:20] LABS: Folic Acid 5.4 ng/mL (2.76->20)
[2024-05-09 12:02] LABS: Hemoglobin A1C 5.7 % (<5.7)
[2024-05-16 00:25] LABS: Vitamin B6 4.3 ng/mL (2.1-21.7)
[2024-05-16 08:53] LABS: Vitamin B1 8 nmol/L (8-30)
[2024-05-21 13:44] LABS: Vitamin B2 <5.0 nmol/L (6.2-39.0)
== END 2024-05-09 08:03 | disposition home or self-care (01) ==
PROVIDERS: PCP Internal Medicine; Visit Provider Internal Medicine
DX: R63.4 Abnormal weight loss (principal); E03.9 Hypothyroidism, unspecified; E04.1 Nontoxic single thyroid nodule; E53.9 Vitamin B deficiency, unspecified; E55.9 Vitamin D deficiency, unspecified; E78.5 Hyperlipidemia, unspecified; I10 Essential (primary) hypertension; Z13.1 Encounter for screening for diabetes mellitus; Z79.899 Other long term (current) drug therapy
CPT/HCPCS: 36415; 71260; 74177; 80053; 82306; 82607; 82746; 83036; 84207; 84252; 84425; 84439; 84443; 85025; 85652; 86140; Q9967

== ENCOUNTER 2024-06-25 00:28 | Day surgery (SDC) | payer MEDICARE, SELFPAY ==
[2024-06-05 14:52] VITALS: BMI 28.8
[2024-06-25 07:18] VITALS: BP 102/60; PULSE 58; RESP 16; TEMP 36.1; O2SAT 98; BMI 28.5
[2024-06-25] MEDS: LACTATED RINGERS 1,000 ML 150 ML IV CONT (07:44)
--- NOTE | 2024-06-25 07:59 | WPDANESEPPF ---
Anes - Initial Pre Proc Eval Procedure: Operation Date: 06/25/24 08:30 Proposed Procedures p Colonoscopy - Pino Betts MD Date/Time: 06/25/24 07:59 Surgeon: Pino Betts MD Pre Op Diagnosis: personal history of colon cancer, polyps Patient Data Age: 79 Gender: M Height: 1.75 m Weight: 87.5 kg Last Vital Signs Temp 97.0 F L 06/25/24 07:18 Pulse 58 L 06/25/24 07:18 Resp 16 06/25/24 07:18 BP 102/60 06/25/24 07:18 Pulse Ox 98 06/25/24 07:18 O2 Del Method Room Air 06/25/24 07:18 Allergies Allergy/AdvReac Type Severity Reaction Status Date / Time donepezil [From Aricept] AdvReac Severe Nightmare Verified 06/25/24 07:31 Home Medications Medication Instructions Recorded Confirmed Type omega-3 fatty acids 1,000 mg 1,000 mg PO DAILY 08/04/19 06/25/24 History capsule (Fish Oil Concentrate) cholecalciferol (vitamin D3) 25 25 mcg PO DAILY 11/30/20 06/25/24 History mcg (1,000 unit) capsule cetirizine 10 mg tablet (Zyrtec) 10 mg PO DAILY #90 tabs 11/24/22 06/25/24 Rx atorvastatin 40 mg tablet 40 mg PO DAILY #90 tabs 05/09/24 06/25/24 Rx pyridoxine (vitamin B6) 100 mg 100 mg PO DAILY 05/16/24 06/25/24 History tablet mecobalamin (vitamin B12) 1,000 1,000 mcg PO DAILY 06/05/24 06/25/24 History mcg chewable tablet (B12 Active) mv-mn-folic 200 mcg-vit K 15 1 cap PO DAILY 06/05/24 06/25/24 History mcg-lutein 5 mg-zeaxanthin 1 mg capsule (PreserVision AREDS 2 Plus Multivit) sertraline 25 mg tablet 10 mg PO DAILY 06/05/24 06/25/24 History Patient hx anesthesia problems: none Family hx anesthesia problems: none Results Review: All pre-operative results and documents have been reviewed as part of the pre-operative evaluation. [facility] Past Medical History Medical History (Updated 06/02/24 @ 11:51 by Ema Francis [facility]) Anxiety Aortic stenosis BMI 25.0-25.9,adult BMI 27.0-27.9,adult Colon polyp Encounter to establish care Follow up Hyperlipidemia LDL goal <100 (~06/2016) Malignant neoplasm of rectum Obesity On system analyst drug therapy Unintentional weight loss Vascular dementia (~02/2019) Vitamin B deficiency Vitamin B12 deficiency (~01/2017) Surgical History Surgical History H/O laminectomy (~02/27/17) H/O laminectomy (~06/08/15) History of back surgery (~01/2019) right L3-L4-L5 microdecompression for synovial cyst History of cataract removal with insertion of prosthetic lens (~2005) right History of cholecystectomy (~2002) History of enucleation of left eyeball (~194) History of rectal surgery (~1999) History of repair of rotator cuff History of vasectomy History of wisdom tooth extraction Hx of appendectomy Hx of colonoscopy (~08/09/16) Hx of hernia repair (~2007) Family History Family History Sibling Family history of pancreatic cancer, Onset Age: 65 Social History Social History Social History: Caffeine-coffee/soda Smoking status: Never smoker Second hand tobacco smoke exposure: No Alcohol intake: never Substance use: never Substance use type: does not use Lack of Transportation: No Lack of Food: Never True Current Housing: I Have Housing Concerned About Future Housing: No Difficulty Paying Gas/Electric Bills: No Difficulty Paying for Meds: No Currently Unemployed: No Difficulty w/ Childcare or Family Care: No Living arrangements: with family Occupation/Education: retired Gender identity (if verbalized by the patient): Male Sexual Orientation (if Verbalized by the Patient): Straight or Heterosexual Spiritual care concerns: No Agree to blood products: Yes Anes - Eval Final PreProcedure Day of Procedure 06/25/24 07:59 Patient weight: normal Heart: regular rate and rhythm Lungs: clear to auscultati
--- NOTE | 2024-06-25 08:17 | PM.HPGS ---
History of Present Illness History of Present Illness Consent: Risks, benefits, and alternatives have been discussed and questions answered. Patient agrees to proceed with procedure. Chief complaint: personal history of colon cancer, polyps Narrative: Chad Mclean is a 79 year old male with h/o CRC 1999's, last colonoscopy 3 years ago. Review of Systems Review of Systems: All systems reviewed & are unremarkable except as noted in HPI and below PMFSH Past Medical History Medical History (Updated 06/02/24 @ 11:51 by Ema Francis [facility]) Anxiety Aortic stenosis BMI 25.0-25.9,adult BMI 27.0-27.9,adult Colon polyp Encounter to establish care Follow up Hyperlipidemia LDL goal <100 (~06/2016) Malignant neoplasm of rectum Obesity On press tender long goods drug therapy Unintentional weight loss Vascular dementia (~02/2019) Vitamin B deficiency Vitamin B12 deficiency (~01/2017) Surgical History Surgical History H/O laminectomy (~02/27/17) H/O laminectomy (~06/08/15) History of back surgery (~01/2019) right L3-L4-L5 microdecompression for synovial cyst History of cataract removal with insertion of prosthetic lens (~2005) right History of cholecystectomy (~2002) History of enucleation of left eyeball (~194) History of rectal surgery (~1999) History of repair of rotator cuff History of vasectomy History of wisdom tooth extraction Hx of appendectomy Hx of colonoscopy (~08/09/16) Hx of hernia repair (~2007) Family History Family History Sibling Family history of pancreatic cancer, Onset Age: 65 Social History Social History Social History: Caffeine-coffee/soda Smoking status: Never smoker Second hand tobacco smoke exposure: No Alcohol intake: never Substance use: never Substance use type: does not use Lack of Transportation: No Lack of Food: Never True Current Housing: I Have Housing Concerned About Future Housing: No Difficulty Paying Gas/Electric Bills: No Difficulty Paying for Meds: No Currently Unemployed: No Difficulty w/ Childcare or Family Care: No Living arrangements: with family Occupation/Education: retired Gender identity (if verbalized by the patient): Male Sexual Orientation (if Verbalized by the Patient): Straight or Heterosexual Spiritual care concerns: No Agree to blood products: Yes Meds Home Medications and Allergies Home Medications Medication Instructions Recorded Confirmed Type omega-3 fatty acids 1,000 mg 1,000 mg PO DAILY 08/04/19 06/25/24 History capsule (Fish Oil Concentrate) cholecalciferol (vitamin D3) 25 25 mcg PO DAILY 11/30/20 06/25/24 History mcg (1,000 unit) capsule cetirizine 10 mg tablet (Zyrtec) 10 mg PO DAILY #90 tabs 11/24/22 06/25/24 Rx atorvastatin 40 mg tablet 40 mg PO DAILY #90 tabs 05/09/24 06/25/24 Rx pyridoxine (vitamin B6) 100 mg 100 mg PO DAILY 05/16/24 06/25/24 History tablet mecobalamin (vitamin B12) 1,000 1,000 mcg PO DAILY 06/05/24 06/25/24 History mcg chewable tablet (B12 Active) mv-mn-folic 200 mcg-vit K 15 1 cap PO DAILY 06/05/24 06/25/24 History mcg-lutein 5 mg-zeaxanthin 1 mg capsule (PreserVision AREDS 2 Plus Multivit) sertraline 25 mg tablet 10 mg PO DAILY 06/05/24 06/25/24 History Allergies Allergy/AdvReac Type Severity Reaction Status Date / Time donepezil [From Aricept] AdvReac Severe Nightmare Verified 06/25/24 07:31 Vital Signs Vital Signs - 24 hr 06/25/24 07:18 Temperature 97.0 F L Pulse Rate 58 L Respiratory Rate 16 Blood Pressure 102/60 Pulse Oximetry 98 Oxygen Delivery Room Air Exam Const: General: comfortable and no acute distress HENMT: Face/Nose/Sinus: Normal nares present Eyes: General: appearance normal, both eyes and all related structures Neck: Neck: no JVD Resp: Auscultatio
[2024-06-25 08:33] VITALS: BP 104/56; PULSE 61; RESP 15; O2SAT 94
[2024-06-25 08:43] VITALS: BP 110/60; PULSE 57; RESP 16; O2SAT 96
[2024-06-25 08:53] VITALS: BP 123/65; PULSE 60; RESP 16; O2SAT 96
== END 2024-06-25 09:04 | disposition home or self-care (01) ==
PROVIDERS: PCP Internal Medicine; Visit Provider Internal Medicine Gastroenterology
PROC: 0DJD8ZZ Inspection of Lower Intestinal Tract, Via Natural or Artificial Opening Endoscopic (ICD-10-PCS; CPT 45378; principal; 2024-06-25 08:30)
DX: Z08 Encounter for follow-up examination after completed treatment for malignant neoplasm (principal); D12.5 Benign neoplasm of sigmoid colon; E78.5 Hyperlipidemia, unspecified; F41.9 Anxiety disorder, unspecified; F01.50 Vascular dementia, unspecified severity, without behavioral disturbance, psychotic disturbance, mood disturbance, and anxiety; E53.8 Deficiency of other specified B group vitamins; Z79.899 Other long term (current) drug therapy; Z98.890 Other specified postprocedural states; Z98.1 Arthrodesis status; Z90.49 Acquired absence of other specified parts of digestive tract; Z98.0 Intestinal bypass and anastomosis status; Z85.038 Personal history of other malignant neoplasm of large intestine; Z80.0 Family history of malignant neoplasm of digestive organs
CPT/HCPCS: 45385; 88305; J2003; J2704; J7120

== ENCOUNTER 2024-10-06 09:16 | Outpatient (CLI) | payer MEDICARE, SELFPAY ==
--- OUTSIDE RECORDS SUMMARY | 2024-10-06 09:50 | XMS_ITS | Referral Summary ---
Author Organization [facility] Address [address] [place] [address] Care Team Providers Care Shipping Support Name Role Phone Unavailable Primary Care Provider Unavailabl e Source Comments [facility],non-owned Affiliates and Associated Physician Practices is amultiple site organization consisting of ambulatory clinics and hospital sitesin [place], [place], [place] and [place]. This disclosure is being madepursuant to the Care Everywhere program and may not contain all information available regarding this patient. Last updated 18.[facility] Allergies No known active allergies Medications * Be aware that medications may not be up to date on this document. Alwaysverify current medications with the patient. Medication Sig Dispensed Refills Start Date End Date Status lovastatin (MEVACOR) 10 MG tablet Take 10 mg by mouth at bedtime. Active Plains-3 Fatty Acids (FISH OIL) 500 MG CAPS capsule Take 500 mg by mouth 2 times daily. Active aspirin EC (ECOTRIN) 81 MG tablet Take 81 mg by mouth once daily. Active Multiple Vitamins-Minerals (OCUVITE PO) Take 1 Tab by mouth. Active hydrocodone-acetaminop hen (NORCO) 5-325 MG tablet Take 1 Tab by mouth every 4 hours as needed for Pain Active Social History Tobacco Use Types Packs/Day Years Used Date Smoking Tobacco: Never Smokeless Tobacco: Never Alcohol Use Standard Drinks/Week Comments No 0 (1 standard drink = 0.6 oz pur e alcohol) Sex and Gender Information Value Date Recorded Sex Assigned at Not on file Gender Identity Not on file Sexual Orientation Not on file Last Filed Vital Signs Vital Sign Reading Time Taken Comments Blood Pressure 155/83 03/31/2015 11:50 AM CDT Pulse 57 03/31/2015 11:50 AM CDT Temperature 36.4 ??C (97.6 ??F) 03/31/2015 11:50 AM C DT Respiratory Rate 18 03/31/2015 11:50 AM CDT Oxygen Saturation 97% 03/31/2015 11:50 AM CDT Inhaled Oxygen Concentration - - Weight 93 kg (205 lb) 03/31/2015 11:50 AM CDT Height 180.3 cm (5' 10.98 ) 03/31/2015 11:50 AM CDT Body Mass Index 28.6 03/31/2015 11:50 AM CDT Plan of Treatment Not on file Vinay, Bernardo Personal/Family Self 1945 [address] [place] [address]
--- OUTSIDE RECORDS SUMMARY | 2024-10-06 09:50 | XMS_ITS | Referral Summary ---
Author Organization [facility] Address [address] [place] [id number] Care Team Providers Care Tug Master Name Role Phone Junie Buitrago NP Primary Care Provider + Allergies Active Allergy Reactions Criticality Noted Date Comments Donepezil Other (See comments) Low 08/15/2018 Vivid/Disturbing Dreams Medications atorvastatin (LIPITOR) 40 mg tablet Take 1 tablet (40 mg total) by mouth daily 11/08/2023 Active PARoxetine (PAXIL) 10 mg tablet Take 1 tablet (10 mg total) by mouth daily 11/07/2023 Active aspirin 81 mg chewable tablet Take 1 tablet (81 mg total) by mouth daily Active aspirin 81 mg enteric coated tablet Take 1 tablet (81 mg total) by mouth daily Active cholecalciferol (VITAMIN D-3) 5,000 unit capsule Take 1 capsule (5,000 Units total) by mouth daily Active HYDROcodone-yossi taminophen (NORCO) 5-325 mg per tablet Take 1 tablet by mouth every 4 (four) hours as needed Active lovastatin (MEVACOR) 10 mg tablet Take 1 tablet (10 mg total) by mouth nightly Active lovastatin (MEVACOR) 40 mg tablet Take 1 tablet (40 mg total) by mouth daily Active magnesium hydroxide (MILK OF MAGNESIA) suspension 400 mg/5 mL Take 30 mL by mouth daily as needed 12/20/2016 Active omega-3 fatty acids-fish oil 340-1,000 mg capsule Take 1 capsule by mouth daily Active vit C/E/Zn/coppr/joanna tein/zeaxan (OCUVITE LUTEIN AND ZEAXANTHIN ORAL) Take 1 tablet by mouth daily Active vit C,Q-Xw-zyqwm-joanna tein-zeaxan 250-90-40-1 mg capsule Take by mouth Active cetirizine 10 mg capsule Take by mouth Active benzonatate (TESSALON) 100 mg capsuleIndicati ons:Cough Take 1 capsule (100 mg total) by mouth 3 (three) times a day as needed for cough 21 capsule 12/08/2023 Active Active Problems Problem Noted Date Diagnosed Date Lumbar stenosis 02/27/2017 Palpitations 06/05/2011 Social History Tobacco Use Types Packs/Day Years Used Date Smoking Tobacco: Never Assessed Sex and Gender Information Value Date Recorded Sex Assigned at Not on file Legal Sex 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 Gender Identity Not on file Sexual Orientation Not on file Last Filed Vital Signs Vital Sign Reading Time Taken Comments Blood Pressure 120/72 12/08/2023 10:16 AM CDT Pulse 73 12/08/2023 10:16 AM CDT Temperature 36.4 ??C (97.5 ??F) 12/08/2023 10:16 AM C DT Respiratory Rate 20 12/08/2023 10:16 AM CDT Oxygen Saturation 96% 12/08/2023 10:16 AM CDT Inhaled Oxygen Concentration - - Weight 90.7 kg (200 lb) 12/08/2023 10:16 AM CDT Height 180.3 cm (5' 11 ) 12/08/2023 10:16 AM CDT Body Mass Index 27.89 12/08/2023 10:16 AM CDT Plan of Treatment Not on file Insurance [employer] MEDICARE A[employer] MEDICARE Care Teams Tug Master Relationship Specialty Start Date End Date Junie Buitrago NP [address] [place] [address] [place] [address] PCP - General Nurse Practitioner 12/08/23
--- OUTSIDE RECORDS SUMMARY | 2024-10-06 09:50 | XMS_ITS | Continuity of Care Document ---
Author Organization [facility] Address [address] [facility] [place] [address] Phone Care Team Providers Care Veneer Patcher Name Role Phone Eugene Ta MD Unavailable Unavailable Allergies, Adverse Reactions, Alerts Substance Reaction Status Criticality No Known Allergies Active No Inform ation Medications Medication Instructions Dosage Effective Dates (start - stop) Status Comments potassium chloride ER 20 mEq tablet,extended release take 1 tablet by oral route every day with food 20 MEQ - Active Lasix 20 mg tablet take 1 tablet by ora l route 2 times every day 20 MG - Active lovastatin 40 mg tablet take 1 tablet (40MG) by oral route every day with the evening meal 40 MG - Active Procedures Procedure Date OFFICE/OUTPATIENT VISIT, EST PREV VISIT, EST, 65 & OVER OFFICE/OUTPATIENT VISIT, EST PREV VISIT, EST, 65 & OVER OFFICE/OUTPATIENT VISIT, EST OFFICE/OUTPATIENT VISIT, EST Advance Directives Directive Yes / No Effective Date File Name No Information Encounters Encounter Description Practice Location Reason(s) For Visit Diagnoses Date Provider Providers Copied on Encounter OFFICE/OUTPA TIENT VISIT, EST [facility], [address] [email or web address] [place], [place], [id number], [place] tel:[phone] [facility] LEG SWELLING (chief complaint) murmur (chief complaint) Cardiac murmur, unspecifiedEdema 6 Keyon Knight. [address] [facility] [place], [address] , [place]. tel:[phone] Referring Provider: Delia Ba [address], [place], [place], [address]. tel:[phone] PREV VISIT, EST, 65 & OVER [facility], [address], [place], [place], [address], [place] [phone] [facility] PHysical (chief complaint) Encounter for general adult medical exam w abnormal findingsMixed hyperlipidemiaAbnor mal weight loss 6 Keyon Knight. [address], [place], [place], [address] , [place]. [phone] Referring Provider: Delia Ba [address], [place], [place], [address]. tel:[phone] PREV VISIT, EST, 65 & OVER [facility], [address], [place], [place], [address], [place] [phone] [facility] Physical (chief complaint) Dietary surveillance and counselingRoutine Medical ExamRoutine Medical Exam 5 Keyon Knight. [address], [place], [place], [address] , [place]. [phone] Referring Provider: Delia Ba [address], [place], [place], [address]. tel:[phone] OFFICE/OUTPA TIENT VISIT, EST [facility], [address], [place], [place], [address], [place] [phone] [facility] UTI (chief complaint) HLP (chief complaint) colon CA (chief complaint) Dietary surveillance and counselingHEMATURIA NOSMalignant neoplasm of other specified sites of large intestineOther and unspecified hyperlipidemia 0 4 Keyon Knight. [address], [place], [place], [address] , [place]. [phone] Referring Provider: Delia Ba [address], [place], [place], [address]. tel:[phone] [facility], [address], [place], [place], [address], tel:[phone] [facility] Routine Medical Exam 4 Keyon Knight. [address], [place], [place], [address] , . tel:[phone] OFFICE/OUTPA TIENT VISIT, EST [facility], [address], [place], [place], [address], tel:[phone] [facility] HLP (chief complaint) colon CA (chief complaint) Other and unspecified hyperlipidemiaDieta ry surveillance and counselingMalignant neoplasm of other specified sites of large intestine 3 Keyon Knight. [address], [place], [place], [address] , . tel:[phone] Referring Provider: Eugene Ta, [address] [facility] [address] [place], [place], [address]. tel:[phone] Family History Family Member Type Diagnosis Age At Onset Mother Problem (finding) Cancer - unkonwn Brother Problem (finding) Cancer - liver CA, alco hol Father Problem (finding) suicide Brother Problem (finding) Cancer, pancreas Payers Payer name Insurance type Covered democrat ID Authoriza tion(s) No Information Social History Type Description Quantity Date Captured Comments Alcohol Use Details No Caffeine Use Details Unknown Tobacco Use Status Never smoked tobacco 2015 Smoking Status Never smoker Sex Male Vital Signs Date / Time: Height Weight BMI Pulse Rate Blood Pressure Temperature Respiratory Rate Body Surface Area Head Circumference BMI percentile Pulse Ox Inhaled Ox 8:31 PM 71.00 in 198.00 lbs 27.6 2 kg/m eter (2) 78 /min 130/80 mm[Hg] 98.5 F 18 /min Chief Complaint And Reason For Visit From encounter dated '05/08/2016 18:00'. LEG SWELLING (chief complaint). Description: Pt c/o leg swelling for 3 days ago. pt had left shoulder surgery 7 days ago. Pt denies any chest pain or SOB. Pt denies any calf pain. pt went to ER and had negative duplex doppler both leg 3 days ago and ruled out DVT . Pt was given some lasix 20 mg daily for 3 days. He only urinate slighlty more with the lasix. Pt denies any recent travel or bedrest. murmur (chief complaint). Description: Pt has a systolic murmur. Pt denies any chest pain or SOB. Pt denies any exertional chest pain or SOB Plan Of Treatment Date Type Action Status No Information History Of Present Illness Encounter Date Complaint History Of Prese nt Illness murmur Pt has a systoli c murmur. Pt denies any chest pain or SOB. Pt denies any exertional chest pain or SOB LEG SWELLING Pt c/o leg swell ing for 3 days ago. pt had left shoulder surgery 7 days ago. Pt denies any chest pain or SOB. Pt denies any calf pain. pt went to ER and had negative duplex doppler both leg 3 days ago and ruled out DVT . Pt was given some lasix 20 mg daily for 3 days. He only urinate slighlty more with the lasix. Pt denies any recent travel or bedrest. PHysical Pt needs annual physical. Pt has HLP and he takes lovastatin. Pt denies any myalgia. Pt denies any GI symptoms. No blood loss. Pt denies any other complaints. Pt has been diet and exercise for intentional weight loss. Pt otherise has no concerns Instructions Date Instruction Additional Infor mation Prescribed Activity and Exercise Education Related to Dietary Surveillance and Counseling Prescribed Diet Educ ation/Lifestyle Education Regarding Diet Related to Dietary Surveillance and Counseling Physical activity counseling Rel ated to Dietary surveillance counseling Decrease caloric intake Related to Dietary surveillance counseling Decrease caloric intake Related to Dietary surveillance counseling Dietary counseling Related to Di etary surveillance counseling Decrease caloric intake Related to Dietary surveillance counseling Dietary counseling Related to Di etary surveillance counseling Assessments Type Assessment Date assessment Cardiac murmur, unspecified assessment Edema Mental Status Date Cognitive Assessment Orientation - [place] ed to time, place, person, situation.
--- OUTSIDE RECORDS SUMMARY | 2024-10-06 09:50 | XMS_ITS | Clinical Summary ---
Author Organization [facility] Address [address] [address] Care Team Providers Care Solder Cream Maker Name Role Phone Unavailable Primary Care Provider Unavailabl e Source Comments [facility],non-owned Affiliates and Associated Physician Practices is amultiple site organization consisting of ambulatory clinics and hospital sitesin [place], [place], [place] and [place]. This disclosure is being madepursuant to the Care Everywhere program and may not contain all information available regarding this patient. Last updated 18.[employer] Dr. Tariff Allergies No known active allergies Medications * Be aware that medications may not be up to date on this document. Alwaysverify current medications with the patient. Medication Sig Dispensed Refills Start Date End Date Status lovastatin (MEVACOR) 10 MG tablet Take 10 mg by mouth at bedtime. Active [place]-3 Fatty Acids (FISH OIL) 500 MG CAPS [...] 03/31/2015 11:50 AM CDT Plan of Treatment Health Maintenance Due Date Last Done Comments DTAP/TDAP/TD VACCINES (1 - Tdap) 1963 PNEUMOCOCCAL VACCINE 50+ (1 of 1 - PCV) 1994 ZOSTER VACCINE (1 of 2) 1994 Respiratory Syncytial Virus (RSV) Vaccine Pt: or over 60 yrs (1 - 1-dose 75+ series) 2019 COVID-19 VACCINE (2023-2 5 season) 2024 INFLUENZA VACCINE (#1) 2024 DEPRESSION SCREENING 09/10/2024 MEDICARE AWV ? CALENDAR YEAR 2024 HEPATITIS B VACCINE Aged Out No longe r eligible based on patient's age to complete this topic HIB VACCINE Aged Out No longer eligi ble based on patient's age to complete this topic HPV VACCINE Aged Out No longer eligi ble based on patient's age to complete this topic MENINGOCOCCAL (Group B) VACCINE Aged Out No longer eligible based on patient's age to complete this topic MENINGOCOCCAL VACCINE Aged Out No atif amilcar eligible based on patient's age to complete this topic
--- OUTSIDE RECORDS SUMMARY | 2024-10-06 09:50 | XMS_ITS | Patient Health Summary ---
Author Organization [facility] [employer] Address [address] [place] [address] Care Team Providers Care Eyewear Manufacturing Supervisor Name Role Phone Unavailable Primary Care Provider Unavailabl e Note from [facility] [employer] [facility],non-owned Affiliates and Associated Physician Practices is amultiple site organization consisting of ambulatory clinics and hospital sitesin [place], [place], [place] and [place]. This disclosure is being madepursuant to the Care Everywhere program and may not contain all information available regarding this patient. Last updated 18.[facility] [employer] Allergies No known active allergies Medications * Be aware that medications may not be up to date on this document. Alwaysverify current medications with the patient. * lovastatin (MEVACOR) 10 MG tablet Take 10 mg by mouth at bedtime. * [place]-3 Fatty Acids (FISH OIL) 500 MG CAPS capsule Take 500 mg by mouth 2 times daily. * aspirin EC (ECOTRIN) 81 MG tablet Take 81 mg by mouth once daily. * Multiple Vitamins-Minerals (OCUVITE PO) Take 1 Tab by mouth. * hydrocodone-acetaminophen (NORCO) 5-325 MG tablet Take 1 Tab by mouth every 4 hours as needed for Pain Social History Tobacco Use Types Packs/Day Years [...] Mass Index 28.6 03/31/2015 11:50 AM CDT Procedures * IR FACET LUMBAR UNILATERAL(Performed 03/31/2015) Performed for Synovial cyst * IR FACET LUMBAR UNILATERAL(Performed 01/06/2015) Performed for Left leg pain * CT LUMBAR SPINE WO CONTRAST(Performed 01/06/2015) Performed for Left leg pain Results * IR FACET LUMBAR SINGLE LVL (03/31/2015 2:15 PM CDT) Only the most recent of2 resultswithin the time period is included. Anatomical Region Laterality Modality X-Ray Angiograph y 03/31/2015 4:12 PM CDT Narrative 03/31/2015 4:14 PM CDT Fluoroscopically guided right L5-S1 facet injection with synovial cyst rupture Indication for examination: Right low back pain radiating down the right leg. 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 This procedure was performed in the radiology Department by Dr. Chauhan. After explanation of the procedure and routine skin prep, a 20-gauge spinal needle was placed into the right L5-S1 facet joint under fluoroscopic control. A posterior oblique approach was chosen with the patient in prone position. The needle was directed into the right L5-S1 facet under fluoroscopic control with image documentation. A total of 6 cc of Omnipaque-180 contrast were injected with spot filming to document needle placement. There is opacification of the previously identified synovial cyst on the right side. 80 mg Depo-Medrol steroid solution in conjunction with 4 cc of 0.25% Marcaine anesthetic were injected. 10 cc of normal saline were injected as well. Large-volume injection resulted in reproduction of his characteristic low back and right leg symptoms, and the symptoms were relieved with loss of resistance to injection suggesting cyst rupture. He tolerated the procedure well without apparent immediate complication. Fluoroscopy time 7.6 minutes. Conclusion: Fluoroscopically guided anesthetic and steroid injection right L5-S1 facet joint with rupture of the right facet joint synovial cyst, performed in the radiology Department by Dr. Chauhan as described. Procedure Note Franky Chauhan MD - 03/31/2015 Fluoroscopically guided right L5-S1 facet injection with synovial cyst rupture Indication for examination: Right low back pain radiating down the right leg. 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 This procedure was performed in the radiology Department by Dr. Chauhan. After explanation of the procedure and routine skin prep, a 20-gauge spinal needle was placed into the right L5-S1 facet joint under fluoroscopic control. A posterior oblique approach was chosen with the patient in prone position. The needle was directed into the right L5-S1 facet under fluoroscopic control with image documentation. A total of 6 cc of Omnipaque-180 contrast were injected with spot filming to document needle placement. There is opacification of the previously identified synovial cyst on the right side. 80 mg Depo-Medrol steroid solution in conjunction with 4 cc of 0.25% Marcaine anesthetic were injected. 10 cc of normal saline were injected as well. Large-volume injection resulted in reproduction of his characteristic low back and right leg symptoms, and the symptoms were relieved with loss of resistance to injection suggesting cyst rupture. He tolerated the procedure well without apparent immediate complication. Fluoroscopy time 7.6 minutes. Conclusion: Fluoroscopically guided anesthetic and steroid injection right L5-S1 facet joint with rupture of the right facet joint synovial cyst, performed in the radiology Department by Dr. Chauhan as described. Volodymyr Martinez MD IR ORDERABLES * CT LUMBAR SPINE NON CONTRAST (01/06/2015 9:13 AM CDT) Anatomical Region Laterality Modality Spine Computed Tomogra phy 01/06/2015 4:35 PM CDT Narrative 01/06/2015 4:[address] lumbar spine Indication for examination: Left low back pain, lumbar radiculopathy. Facet joint synovial cyst. Noncontrast CT examination of the lumbar spine is performed with thin section helical technique with sagittal and coronal reconstructions. No prior lumbar imaging studies are available. Examination of the bony structures reveals no acute fracture. There is no bone destruction. There is Schmorl's node formation at the inferior endplate of L4. There is markedly advanced hypertrophic and degenerative change at L3-4 with with somewhat less advanced degenerative change L2-3 and L4-5. There is facet arthrosis, multilevel, inferiorly. There is a rudimentary S1-S2 disc space. Axial images are obtained from T10-S1. T10-11, T11-12: Normal in axial projection. T12-L1: Minimal diffuse annular bulge. Foramina are patent. No thecal sac compression. L1-L2: Essentially normal in axial projection. Foramina appear patent. L2-3: Minimal diffuse annular bulge with endplate hypertrophy. Mild facet hypertrophy. No spinal stenosis or high-grade thecal sac compression. Foramina are patent. L3-4: Endplate hypertrophy, diffuse annular bulge and facet hypertrophy resulting in pacw-bl-qazgwpxu central canal and lateral recess stenosis. There is mild encroachment L3 foramen bilaterally at this level. L4-5: Endplate hypertrophy and mild diffuse annular bulge. There is facet and ligamentum flavum hypertrophy. Findings result in mild central canal and lateral recess stenosis. There is encroachment L4 foramen bilaterally. L5-S1: Facet arthrosis. There is an ill-defined soft tissue density on the left side dorsally at this level, extending inferiorly, consistent with the clinically suspected facet joint synovial cyst on the left side at this level. This results in encroachment left dorsal thecal sac. There is diffuse annular bulge. There is encroachment L5 foramen bilaterally. Conclusion: Hypertrophic and degenerative change all levels as described in detail above. Ill-defined soft tissue density medial to the left L5-S1 facet joint, consistent with the clinically suspected facet joint synovial cyst in this area. Ikpv-wh-gbdykoku central canal and lateral recess stenosis L3-4, mild central canal stenosis L4-5. Bilateral L3, L4 and L5 foraminal encroachment. No focal disc protrusion. No fracture or acute bone destruction. Procedure Note Franky Chauhan MD - 01/06/2015 CT lumbar spine Indication for examination: Left low back pain, lumbar radiculopathy. Facet joint synovial cyst. Noncontrast CT examination of the lumbar spine is performed with thin section helical technique with sagittal and coronal reconstructions. No prior lumbar imaging studies are available. Examination of the bony structures reveals no acute fracture. There is no bone destruction. There is Schmorl's node formation at the inferior endplate of L4. There is markedly advanced hypertrophic and degenerative change at L3-4 with with somewhat less advanced degenerative change L2-3 and L4-5. There is facet arthrosis, multilevel, inferiorly. There is a rudimentary S1-S2 disc space. Axial images are obtained from T10-S1. T10-11, T11-12: Normal in axial projection. T12-L1: Minimal diffuse annular bulge. Foramina are patent. No thecal sac compression. L1-L2: Essentially normal in axial projection. Foramina appear patent. L2-3: Minimal diffuse annular bulge with endplate hypertrophy. Mild facet hypertrophy. No spinal stenosis or high-grade thecal sac compression. Foramina are patent. L3-4: Endplate hypertrophy, diffuse annular bulge and facet hypertrophy resulting in zvta-gv-jdidmakk central canal and lateral recess stenosis. There is mild encroachment L3 foramen bilaterally at this level. L4-5: Endplate hypertrophy and mild diffuse annular bulge. There is facet and ligamentum flavum hypertrophy. Findings result in mild central canal and lateral recess stenosis. There is encroachment L4 foramen bilaterally. L5-S1: Facet arthrosis. There is an ill-defined soft tissue density on the left side dorsally at this level, extending inferiorly, consistent with the clinically suspected facet joint synovial cyst on the left side at this level. This results in encroachment left dorsal thecal sac. There is diffuse annular bulge. There is encroachment L5 foramen bilaterally. Conclusion: Hypertrophic and degenerative change all levels as described in detail above. Ill-defined soft tissue density medial to the left L5-S1 facet joint, consistent with the clinically suspected facet joint synovial cyst in this area. Fqzy-qf-wsrqofod central canal and lateral recess stenosis L3-4, mild central canal stenosis L4-5. Bilateral L3, L4 and L5 foraminal encroachment. No focal disc protrusion. No fracture or acute bone destruction. Franky Chauhan MD CT ORDERABLES
--- OUTSIDE RECORDS SUMMARY | 2024-10-06 09:50 | XMS_ITS | Clinical Summary ---
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 Gender Identity Not on file Sexual Orientation Not on file Obstetrics History Last Filed Vital Signs Vital Sign Reading [...] 12/08/2023 10:16 AM CDT Plan of Treatment Health Maintenance Due Date Last Done Comments Depression Screening 1944 Fall Risk Assessment 1944 DTaP/Tdap/Td Vaccine (1 - Tdap) 1955 Hepatitis B Screening 1962 Zoster Vaccine (1 of 2) 1994 Pneumococcal vaccine 65+ (1 of 1 - PCV) 2009 Well Visit 65+ 2009 Covid-19 Vaccine (2023-2 5 season) 2024 06/01/2023, 06/22/2022, 01/31/2022, Additional history exists Influenza Vaccine (#1) 2024 , 05/31/2022, 05/30/2021, Additional history exists Insurance MEDICARE [employer]IONS [facility], 1928–1983 MEDICARE AETNA MEDICARE Care Teams Bench Mechanic Relationship Specialty Start Date End Date Junie Buitrago NP [address] [place] [address] [place] [address] PCP - General Nurse Practitioner 12/08/23
--- OUTSIDE RECORDS SUMMARY | 2024-10-06 09:50 | XMS_ITS | Continuity of Care Document ---
Author Organization [facility] Address [address] [place] [address] [place] [address] Phone Care Team Providers Care Aircraft Armament Mechanic Name Role Phone Heidi WELCH Daren Unavailable Unavailable Procedures Procedure Date Post-op Follow-up Visit Post-op Follow-up Visit Remove Cataract, Insert Lens Office Consultation [employer] Advance Directives Directive Yes / No Effective Date File Name No Information Encounters Encounter Description Practice Location Reason(s) For Visit Diagnoses Date Provider Providers Copied on Encounter [facility], [address], [place], [place], [id number], tel:[phone] SEC Lexy Montenegro No Information 7 Heidi Mercedes. [address], [id number], . tel:[phone] Referring Provider: Thom Guardado OD F, [address] [facility] [address], [place], [address]. tel:[phone] [facility], [address], [place], [place], [address], tel:[phone] SEC Lexy Montenegro No Information 7 Heidi Mercedes. [address], [id number], . tel:[phone] Referring Provider: Thom Guardado OD F, [address] [facility] [address], [place], [address]. tel:[phone] [facility], [address], [place], [place], [address], tel:[phone] [facility] No Information [address]. [address] [facility], [address], [place], [place], [address], [place]. tel:[phone] Referring Provider: Thom Guardado OD F, [address], [place], [address]. tel:[phone] Office Consultation [facility], [address], [place], [place], [address], [place] tel:[phone] SEC Lexy N Moni No Information [address]. [address] [facility], [address], [place], [place], [address], [place]. tel:[phone] Referring Provider: Thom Guardado OD F, [address], [place], [address]. tel:[phone] Family History Family Member Type Diagnosis Age At Onset No Information Payers Payer name Insurance type Covered republican ID Authoriza tion(s) No Information Social History Type Description Quantity Date Captured Comments Sex Male Smoking Status No Information Chief Complaint And Reason For Visit No Information Reason For Referral Reason For Referral No Information History Of Present Illness Encounter Date Complaint History Of Prese nt Illness No Information Functional Status Date Functional Assessmen t No Information Instructions Date Instruction Additional Infor mation No Information Assessments Type Assessment Date No Information Patient Care Teams Name Effective Dates (start - stop) Status Members No Information
[2024-10-06 10:04] LABS: Alanine Aminotransferase 25 U/L (6-50); Albumin Level 3.9 g/dL (3.5-5.1); Alkaline Phosphatase 83 U/L (38-126); Anion Gap 8 mmol/L (4-12); Aspartate Amino Transferase 30 U/L (17-59); Bilirubin,Total 0.9 mg/dL (0.2-1.3); Blood Urea Nitrogen 18 mg/dL (9-20); Calcium 9.1 mg/dL (8.4-10.2); Carbon Dioxide 27 mmol/L (22-30); Chloride 105 mmol/L (98-107); Cholesterol 141 mg/dL (0-200); Estimated Glomerular Filt Rate > 60; Glucose 93 mg/dL (65-110); HDL Direct 39 mg/dL; Potassium 4.3 mmol/L (3.4-5.0); Sodium 140 mmol/L (137-145); Triglycerides 106 mg/dL (<150)
[2024-10-06 10:16] LABS: LDL Cholesterol Direct 84 mg/dL
[2024-10-06 10:44] LABS: Free T4 Free Thyroxine 0.96 ng/dL (0.78-2.19)
[2024-10-06 11:07] LABS: Hemoglobin A1C 5.5 % (<5.7)
[2024-10-06 11:25] LABS: Folic Acid > 20.0 ng/mL (2.76->20)
[2024-10-09 13:24] LABS: Vitamin B6 20.8 ng/mL (2.1-21.7)
[2024-10-09 13:44] LABS: Vitamin B1 14 nmol/L (8-30)
[2024-10-11 13:38] LABS: Vitamin B2 13.4 nmol/L (6.2-39.0)
== END 2024-10-06 09:17 | disposition home or self-care (01) ==
PROVIDERS: PCP Internal Medicine; Visit Provider Internal Medicine
DX: E53.9 Vitamin B deficiency, unspecified (principal)
CPT/HCPCS: 36415; 80053; 80061; 82607; 82746; 83036; 84207; 84252; 84425; 84439; 84443

== ENCOUNTER 2024-11-03 13:24 | Outpatient (CLI) | payer MEDICARE, SELFPAY ==
--- OUTSIDE RECORDS SUMMARY | 2024-11-03 15:16 | XMS_ITS | Continuity of Care Document ---
Author Organization [facility] Address [address] [place] [address] [place] [address] Phone Care Team Providers Care Inner Layer Scrubber Tender Name Role Phone Heidi WELCH Daren Unavailable Unavailable Procedures Procedure Date Post-op Follow-up Visit Post-op Follow-up Visit Remove Cataract, Insert Lens Office Consultation IOLMaster Advance Directives Directive Yes / No Effective Date File Name No Information Encounters Encounter Description Practice Location Reason(s) For Visit Diagnoses Date Provider Providers Copied on Encounter [facility], [address], [place], [place], [id number], tel:[phone] SEC Lexy Montenegro No Information 7 Heidi Mercedes. [address], [id number], . tel:[phone] Referring Provider: Thom Guardado OD F, [address] [facility], [place], [address]. tel:[phone] [facility], [address], [place], [place], [address], tel:[phone] SEC Lexy Montenegro No Information 7 Heidi Mercedes. [address], [id number], . tel:[phone] Referring Provider: Thom Guardado OD F, [address] [facility], [place], [address]. tel:[phone] [facility], [address], [place], [place], [address], tel:[phone] [facility] No Information 200 7 Diannagareth Thomas. [address] [facility], [address], [place], [place], [address], [place]. tel:[phone] Referring Provider: Thom Guardado OD F, [address] [facility] [address], [place], [address]. tel:[phone] Office Consultation [facility], [address], [place], [place], [address], [place] tel:[phone] SEC [place] Mon[place] No Information 7 Dianna William. [address] [facility], [address], [place], [place], [address], [place]. tel:[phone] Referring Provider: Thom Guardado OD F, [address] [facility] [address], [place], [address]. tel:[phone] Family History Family Member Type Diagnosis Age [...]
--- OUTSIDE RECORDS SUMMARY | 2024-11-03 15:16 | XMS_ITS | Clinical Summary ---
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 Gender Identity Not on file Sexual Orientation Not on file Obstetrics History Last Filed Vital Signs Vital Sign Reading Time Taken Comments Blood Pressure 120/72 12/08/2023 10:16 AM CDT Pulse 73 12/08/2023 10:16 AM CDT Temperature 36.4 C (97.5 F) 12/08/2023 10:16 AM CDT Respiratory Rate 20 12/08/2023 10:16 AM CDT [...] - Tdap) 1955 Hepatitis B Screening 1962 Pneumococcal vaccine 65+ (1 of 1 - PCV) 1994 Zoster Vaccine (1 of 2) 1994 Well Visit 65+ 2009 Covid-19 Vaccine (2023-2 5 season) 2024 06/01/2023, 06/22/2022, 01/31/2022, Additional history exists Influenza Vaccine (#1) 2024 , 05/31/2022, 05/30/2021, Additional history exists Insurance MEDICARE SOLUTIONS [facility] MEDIC[facility] Address: [address] [address] [place] [address] [facility] MEDIC[facility] AET[employer] MEDICARE Care Teams Lead Javascript Engineer Relationship Specialty Start Date End Date Junie Buitrago NP [address] [place] [address] [address] [place], [place] [id number] PCP - General Nurse Practitioner 12/08/23
--- OUTSIDE RECORDS SUMMARY | 2024-11-03 15:16 | XMS_ITS | Clinical Summary ---
Author Organization [facility] Address [address] [place] [address] Care Team Providers Care Campus Supervisor Name Role Phone Unavailable Primary Care Provider Unavailabl e Source Comments [facility],non-owned Affiliates and Associated Physician Practices is amultiple site organization consisting of ambulatory clinics and hospital sitesin [place], [place], [place] and [place]. This disclosure is being madepursuant to the Care Everywhere program and may not contain all information available regarding this patient. Last updated 18.[facility] Allergies No known active allergies Medications * Be aware that medications may not be up to date on this document. Alwaysverify current medications with the patient. Medication Sig Dispensed Refills Start Date End Date Status lovastatin (MEVACOR) 10 MG tablet Take 10 mg by mouth at bedtime. Active [place]-3 Fatty Acids (FISH OIL) 500 MG CAPS [...] 57 03/31/2015 11:50 AM CDT Temperature 36.4 C (97.6 F) 03/31/2015 11:50 AM CDT Respiratory Rate 18 03/31/2015 11:50 AM CDT [...] (#1) 2024 DEPRESSION SCREENING 09/10/2024 MEDICARE AWV CALENDAR YEAR 2024 HEPATITIS B VACCINE Aged [...]
--- OUTSIDE RECORDS SUMMARY | 2024-11-03 15:16 | XMS_ITS | Continuity of Care Document ---
Author Organization [facility] Address [address] [facility] [place] [address] Phone Care Team Providers Care Boilermaker Mechanic Name Role Phone Eugene Ta MD Unavailable Unavailable Allergies, Adverse Reactions, Alerts Substance Reaction Status Criticality No Known Allergies Active No Inform ation Medications Medication Instructions Dosage Effective Dates (start - stop) Status Comments Lasix 20 mg tablet take 1 tablet by ora l route 2 times every day 20 MG - Active potassium chloride ER 20 mEq tablet,extended release take 1 tablet by oral route every day with food 20 MEQ - Active lovastatin 40 mg tablet take [...] Copied on Encounter OFFICE/OUTPA TIENT VISIT, EST [facility], [address] [facility] [facility] [place], [address], [place] tel:[phone] [facility] Medicine LEG SWELLING (chief complaint) murmur (chief complaint) Cardiac murmur, unspecifiedEdema 6 Keyon Knight. [address] [facility] [place], [place], [address] , [place]. tel:[phone] Referring Provider: Delia [address], [place], [place], [address]. tel:[phone] PREV VISIT, EST, 65 & OVER [facility], [address], [place], [place], [address], [place] [phone] [facility] Family Medicine PHysical (chief complaint) Encounter for general adult medical exam w abnormal findingsMixed hyperlipidemiaAbnor mal weight loss 6 Keyon Knight. [address], [place], [place], [address] , [place]. [phone] Referring Provider: Delia [address], [place], [place], [address]. tel:[phone] PREV VISIT, EST, 65 & OVER [facility], [address], [place], [place], [address], [place] [phone] [facility] Medicine Physical (chief complaint) Dietary surveillance and counselingRoutine Medical ExamRoutine Medical Exam 5 Keyon Knight. [address], [place], [place], [address] , [place]. [phone] Referring Provider: Delia [address], [place], [place], [address]. tel:[phone] OFFICE/OUTPA TIENT VISIT, EST [facility], [address], [place], [place], [address], [place] [phone] [facility] UTI (chief complaint) HLP (chief complaint) colon CA (chief complaint) Dietary surveillance and counselingHEMATURIA NOSMalignant neoplasm of other specified sites of large intestineOther and unspecified hyperlipidemia 0 4 Keyon Knight. [address], [place], [place], [address] , [place]. [phone] Referring Provider: Delia Ba [address], [place], [place], [address]. tel:[phone] [facility], [address], [place], [place], [address], tel:[phone] [facility] Routine Medical Exam 4 Keyon Knight. [address], [place], [place], [address] , . tel:[phone] OFFICE/OUTPA TIENT VISIT, EST [facility], [address], [place], [place], [address], tel:[phone] [facility] HLP (chief complaint) colon CA (chief complaint) Other and unspecified hyperlipidemiaDieta ry surveillance and counselingMalignant neoplasm of other specified sites of large intestine 3 Keyon Knight. [address], [address], [place], [place], [address] , . tel:[phone] Referring Provider: Eugene Ta, [address], [place], [place], [address]. tel:[phone] Family History Family Member Type Diagnosis Age [...] Instructions Date Instruction Additional Infor mation Prescribed Diet Educ ation/Lifestyle Education Regarding Diet Related to Dietary Surveillance and Counseling Prescribed Activity and Exercise Education Related to Dietary Surveillance and Counseling Physical [...] Mental Status Date Cognitive Assessment Orientation - [place] ed to time, place, person, situation.
--- OUTSIDE RECORDS SUMMARY | 2024-11-03 15:16 | XMS_ITS | Referral Summary ---
Author Organization [facility] Address [address] [place] [address] Care Team Providers Care Net Washer Name Role Phone Unavailable Primary Care Provider Unavailabl e Source Comments [facility],non-owned Affiliates and Associated Physician Practices is amultiple site organization consisting of ambulatory clinics and hospital sitesin [place], [place], [place] and [place]. This disclosure is being madepursuant to the Care Everywhere program and may not contain all information available regarding this patient. Last updated 18.[facility] Allergies No known active allergies Medications * Be aware that medications may not be up to date on this document. Alwaysverify current medications with the patient. Medication Sig Dispensed Refills Start Date End Date Status lovastatin (MEVACOR) 10 MG tablet Take 10 mg by mouth at bedtime. Active Vanzant-3 Fatty Acids (FISH OIL) 500 MG CAPS [...] CDT Plan of Treatment Not on file Bernardo Mclean Personal/Family Self [address] [place] [address]
--- OUTSIDE RECORDS SUMMARY | 2024-11-03 15:16 | XMS_ITS | Patient Health Summary ---
Author Organization [facility] Address [address] [place] [address] Care Team Providers Care Welder Name Role Phone Unavailable Primary Care Provider Unavailabl e Note from [facility],non-owned Affiliates and Associated Physician Practices is amultiple site organization consisting of ambulatory clinics and hospital sitesin [place], [place], [place] and [place]. This disclosure is being madepursuant to the Care Everywhere program and may not contain all information available regarding this patient. Last updated 18.[facility] Allergies No known active allergies Medications * Be aware that medications may not be up to date on this document. Alwaysverify current medications with the patient. * lovastatin (MEVACOR) 10 MG tablet Take 10 mg by mouth at bedtime. * [place]-3 Fatty Acids (FISH OIL) 500 MG CAPS [...] annular bulge and facet hypertrophy resulting in aozd-qj-bzxbazat central canal and lateral recess stenosis. There [...] facet joint synovial cyst in this area. Tpji-zb-vxhaxgus central canal and lateral recess stenosis L3-4, [...] annular bulge and facet hypertrophy resulting in gwms-sj-dpbxynuq central canal and lateral recess stenosis. There [...] facet joint synovial cyst in this area. Tamz-ml-bgvfnekv central canal and lateral recess stenosis L3-4, mild central canal stenosis L4-5. Bilateral L3, L4 and L5 foraminal encroachment. No focal disc protrusion. No fracture or acute bone destruction. Franky Chauhan MD CT ORDERABLES
--- OUTSIDE RECORDS SUMMARY | 2024-11-03 15:16 | XMS_ITS | Referral Summary ---
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
== END 2024-11-03 13:25 | disposition home or self-care (01) ==
LOC: ANHAUDIO 13:25
PROVIDERS: PCP Internal Medicine; Visit Provider Internal Medicine
DX: H90.3 Sensorineural hearing loss, bilateral (principal)
CPT/HCPCS: 92557; 92567

== ENCOUNTER 2025-01-27 11:43 | Outpatient (CLI) | payer MEDICARE, SELFPAY ==
--- OUTSIDE RECORDS SUMMARY | 2025-01-27 11:47 | XMS_ITS | Continuity of Care Document ---
Author Organization [facility] Address [address] [place] [address] [place] [address] Phone Care Team Providers Care Hogshead Press Operator Name Role Phone Heidi WELCH Daren Unavailable Unavailable Procedures Procedure Date Post-op Follow-up Visit Post-op Follow-up Visit Remove Cataract, Insert Lens Office Consultation IOLMaster Advance Directives Directive Yes / No Effective Date File Name No Information Encounters Encounter Description Practice Location Reason(s) For Visit Diagnoses Date Provider Providers Copied on Encounter [facility], [address], [place], [place], [address], tel:[phone] SEC Lexy Montenegro No Information 7 Heidi Mercedes. [address], [id number], . tel:[phone] Referring Provider: Thom Guardado OD F, [address] [facility], [place], [address]. tel:[phone] [facility], [address], [place], [place], [address], tel:[phone] SEC Lexy Montenegro No Information 7 Heidi Mercedes. [address], [id number], . tel:[phone] Referring Provider: Thom Guardado OD F, [address] [facility], [place], [address]. tel:[phone] [facility], [address] [facility] [address], [place], [place], [address], tel:[phone] [facility] No Information [address]. [address] [facility], [address], [place], [place], [address], [place]. tel:[phone] Referring Provider: Thom Guardado OD F, [address] [facility] [address], [place], [address]. tel:[phone] Office Consultation [facility], [address] [facility] [address], [place], [place], [address], [place] tel:[phone] SEC [place] [address] Moni No Information 7 Dianna William. [address] [facility], [address], [place], [place], [address], [place]. tel:[phone] Referring Provider: Thom Guardado OD F, [address] [facility] [address], [place], [address]. tel:[phone] Family History Family Member Type Diagnosis Age At Onset No Information Payers Payer name Insurance type Covered constitution party ID Authoriza tion(s) No Information Social History [...]
--- OUTSIDE RECORDS SUMMARY | 2025-01-27 11:47 | XMS_ITS | Clinical Summary ---
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
--- OUTSIDE RECORDS SUMMARY | 2025-01-27 11:47 | XMS_ITS | Continuity of Care Document ---
Author Organization [facility] Address [address] [facility] [place] [address] Phone Care Team Providers Care Box Press Operator Name Role Phone Eugene Ta MD Unavailable [...] Copied on Encounter OFFICE/OUTPA TIENT VISIT, EST [facility], [address] [facility] [place], [place], [address], [place] tel:[phone] [facility] Medicine LEG SWELLING (chief complaint) murmur (chief complaint) Cardiac murmur, unspecifiedEdema 6 Keyon Knight. [address] [facility] [place], [address] , [place]. tel:[phone] Referring Provider: Delia [address], [place], [place], [address]. tel:[phone] PREV VISIT, EST, 65 & OVER [facility], [address], [place], [place], [address], [place] [phone] [facility] Family Medicine PHysical (chief complaint) Encounter for general adult medical exam w abnormal findingsMixed hyperlipidemiaAbnor mal weight loss 6 Keyon Knight. [address], [address], [place], [place], [address] , [place]. [phone] Referring Provider: Delia [address], [place], [place], [address]. tel:[phone] PREV VISIT, EST, 65 & OVER [facility], [address], [place], [place], [address], [place] [phone] [facility] Medicine Physical (chief complaint) Dietary surveillance and counselingRoutine Medical ExamRoutine Medical Exam 5 Keyon Knight. [address], [address], [place], [place], [address] , [place]. [phone] Referring Provider: Delia [address], [place], [place], [address]. tel:[phone] OFFICE/OUTPA TIENT VISIT, EST [facility], [address], [place], [place], [address], [place] [phone] [facility] UTI (chief complaint) HLP (chief complaint) colon CA (chief complaint) Dietary surveillance and counselingHEMATURIA NOSMalignant neoplasm of other specified sites of large intestineOther and unspecified hyperlipidemia 0 4 Keyon Knight. [address], [place], [place], [address] , [place]. [phone] Referring Provider: Delia [address], [place], [place], [address]. tel:[phone] [facility], [address], [place], [place], [address], tel:[phone] [facility] Routine Medical Exam 4 Keyon Knight. [address], [place], [place], [address] , . tel:[phone] OFFICE/OUTPA TIENT VISIT, EST [facility], [address], [place], [place], [address], tel:[phone] [facility] HLP (chief complaint) colon CA (chief complaint) Other and unspecified hyperlipidemiaDieta ry surveillance and counselingMalignant neoplasm of other specified sites of large intestine 3 Keyon Knight. [address], [place], [place], [address] , . tel:[phone] Referring Provider: Eugene Ta, [address] [facility] [address], [place], [place], [address]. tel:[phone] Family History Family Member Type Diagnosis Age At Onset Mother Problem (finding) Cancer - unkonwn Brother Problem (finding) Cancer - liver CA, alco hol Father Problem (finding) suicide Brother Problem (finding) Cancer, pancreas Payers Payer name Insurance type Covered constitution [...] caloric intake Related to Dietary surveillance counseling Assessments Type Assessment Date assessment Cardiac murmur, unspecified assessment Edema Mental Status Date Cognitive Assessment Orientation - [place] ed to time, place, person, situation.
--- OUTSIDE RECORDS SUMMARY | 2025-01-27 11:47 | XMS_ITS | Referral Summary ---
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
--- OUTSIDE RECORDS SUMMARY | 2025-01-27 11:47 | XMS_ITS | Clinical Summary ---
Author Organization [facility] Address [address] [address] Care Team Providers Care Apprentice Carpenter Name Role Phone Unavailable Primary Care Provider Unavailabl e Source Comments [facility] [employer],non-owned Affiliates and Associated Physician Practices is amultiple site organization consisting of ambulatory clinics and hospital sitesin [place], [place], [place] and [place]. This disclosure is being madepursuant to the Care Everywhere program and may not contain all information available regarding this patient. Last updated 18.[facility] Allergies No known active allergies Medications * Be aware that medications may not be up to date on this document. Alwaysverify current medications with the patient. lovastatin (MEVACOR) 10 MG tablet Take 10 mg by mouth at bedtime. Active [place]-3 Fatty Acids (FISH OIL) 500 MG CAPS capsule Take 500 mg by mouth 2 times daily. Active aspirin EC (ECOTRIN) 81 MG tablet Take 81 mg by mouth once daily. Active Multiple Vitamins-Mineral s (OCUVITE PO) Take 1 Tab by mouth. Active hydrocodone-acet aminophen (NORCO) 5-325 MG tablet Take 1 Tab [...] at Not on file Legal Sex Male 10:06 AM CDT Gender Identity Not on file Sexual Orientation [...] - 1-dose 75+ series) 2019 COVID-19 VACCINE ( - 2023-2 5 season) 2024 DEPRESSION SCREENING 09/10/2024 MEDICARE AWV CALENDAR YEAR 2024 INFLUENZA VACCINE (Season Ended) 2025 HEPATITIS B VACCINE Aged Out No longe r eligible based on patient's age to complete this topic HIB VACCINE Aged Out No longer eligi ble based on patient's age to complete this topic HPV VACCINE Aged Out No longer eligi ble based on patient's age to complete this topic MENINGOCOCCAL (Group B) VACC INE SHARED DECISION-MAKING Aged Out No longer eligibl e based on patient's age to complete this topic MENINGOCOCCAL GROUPS A/C/Y/W VACCINE Aged Out No longer eligible b ased on patient's age to complete this topic Insurance U[employer] [place] [address] AETNA MEDICARE ADV SELF PAY NO INSURANCE Member Subscriber Plan / Payer (Ef fective for All Dates) Name:Surya Mclean Member ID:Not on file Relation to Subscriber:Not on file Name:SURYA MCLEAN Subscriber ID:Not on file (Home) Address: [address] [place] [address] Payer ID:Not on file Group ID:Not on file Type:Self Pay Address: [place], [place]
[2025-01-27 12:55] LABS: Prostate Specific Antigen 0.2 ng/mL (< OR = 4.0)
== END 2025-01-27 11:44 | disposition home or self-care (01) ==
LOC: ANHLAB 11:44
PROVIDERS: PCP Internal Medicine; Visit Provider Internal Medicine
DX: Z12.5 Encounter for screening for malignant neoplasm of prostate (principal)
CPT/HCPCS: 36415; 84153; G0103

== ENCOUNTER 2025-02-27 09:26 | Outpatient (CLI) | payer MEDICARE, SELFPAY ==
--- NOTE | 2025-02-27 09:49 | ECHO_ITS ---
Patient Info Name: Chad Mclean Age: 79 years : 1945 Gender: Male Ht: 69 in Wt: 200 lbs BSA: 2.12 m2 HR: 57 bpm BP: 122 / 76 mmHg Technical Quality: Fair Exam Date: 02/27/2025 10:02 AM Patient Status: O Admit Date: 02/27/2025 Exam Type: CA echo doppler color flow Staff Attending Provider: Eben Fried DO Summary 1. Left ventricular chamber dimension is normal. 2. Left ventricular systolic function is normal, estimated at 60-65. 3. There is moderate concentric increased left ventricular wall thickness. 4. The left ventricular diastolic function is grade I diastolic dysfunction. 5. Global longitudinal strain is mildly abnormal at -16.2%. 6. E/e' 18 is elevated. 7. Left atrial chamber dimension is mildly enlarged. 8. There is severe aortic valve sclerosis. 9. There is severe aortic valve stenosis with a peak velocity of 439 cm/s, mean gradient of 47 mmHg, and aortic valve area of 0.8 cm2. 10. There is mild to moderate aortic valve regurgitation. 11. There is mild mitral valve regurgitation. 12. No pulmonary hypertension, estimated pulmonary arterial systolic pressure is 22 mmHg. 13. There is trace pulmonic regurgitation. Left Ventricle E/e' 18 is elevated. Left ventricular chamber dimension is normal. Left ventricular systolic function is normal, estimated at 60-65. There is moderate concentric increased left ventricular wall thickness. The left ventricular diastolic function is grade I diastolic dysfunction. Global longitudinal strain is mildly abnormal at -16.2%. Right Ventricle Right ventricular chamber dimension is normal. Right ventricular systolic function is normal. Left Atria Left atrial chamber dimension is mildly enlarged. Right Atria Right atrial chamber dimension is normal. Aortic Valve The aortic valve is trileaflet. There is severe aortic valve sclerosis. There is severe aortic valve stenosis with a peak velocity of 439 cm/s, mean gradient of 47 mmHg, and aortic valve area of 0.8 cm2. There is mild to moderate aortic valve regurgitation. Pulmonic Valve There is trace pulmonic regurgitation. Mitral Valve There is no mitral valve stenosis. There is mild mitral valve regurgitation. Tricuspid Valve There is no tricuspid valve regurgitation. No pulmonary hypertension, estimated pulmonary arterial systolic pressure is 22 mmHg. Pericardium/Pleural There is no pericardial effusion. Inferior Vena Cava Normal inferior vena cava with >50% collapse upon inspiration consistent with normal right atrial pressure, 5 mmHg. Aorta The aortic root size at the sinus of Valsalva is normal. Left Ventricular Outflow Tract Name Value Normal LVOT 2D LVOT Diameter 2.0 cm LVOT Doppler LVOT Peak Velocity 106 cm/s LVOT Peak Gradient 5 mmHg LVOT Mean Gradient 3 mmHg LVOT VTI 30 cm LVOT VTI/AV VTI Ratio 0.2 LVOT Stroke Volume 90 ml LVOT CO 4.5 l/min LVOT CI 2.1 l/min/m2 Pulmonic Valve Name Value Normal RVOT Doppler RVOT Peak Velocity 55 cm/s RVOT Peak Gradient 1 mmHg PV Doppler PV Peak Velocity 123 cm/s PV Peak Gradient 6 mmHg Mitral Valve Name Value Normal MV Diastolic Function MV E Peak Velocity 74 cm/s MV A Peak Velocity 117 cm/s MV E/A 0.6 MV Decel Time (PW) 340 ms Tricuspid Valve Name Value Normal TV Regurgitation Doppler TR Peak Velocity 204 cm/s TR Peak Gradient 17 mmHg Estimated PAP/RSVP RA Pressure 5 mmHg <=5 PA Systolic Pressure 22 mmHg <36 RV Systolic Pressure 22 mmHg <36 Aorta Name Value Normal Ascending Aorta Ao Root Diameter (MM) 3.3 cm Ao Root Diam Index (MM) 1.6 cm/m2 Aortic Valve Name Value Normal AV 2D/MM AV Area (Planimetry) 1.3 cm2 AV Doppler AV Peak Velocity 439 cm/s AV Peak Gradient 77 mmHg AV Mean Gradient 47 mmHg AV VTI 119 cm AV Area (Cont Eq VTI) 0.8 cm2 >=3.0 AV Area (Cont Eq Holger) 0.7 cm2 AV DI (Holger) 0.24 AV Regurgitation 2D LVOT Area 3.0 cm2 Ventricles Name Value Normal LV Dimensions 2D/MM IVS Diastolic Thickness (2D) 1.1 cm 0.6-1.0 IVS Diastole Thickness (MM) 1.5 cm 0.6-1.0 LVID Diastole (2D) 4.6 cm 4.2-5.8 LVID Diastole (MM) 5.5 cm 4.2-5.8 LVIW Diastolic Thickness (2D) 1.8 cm 0.6-1.0 LVIW Diastolic Thickness (MM) 1.1 cm 0.6-1.0 LVID Systole (2D) 3.1 cm 2.5-4.0 LVID Systole (MM) 3.0 cm 2.5-4.0 LVOT Diameter 2.0 cm LV Mass (2D Cubed) 264.24 g 88.00-224.00 LV Mass Index (2D Cubed) 124 g/m2 49-115 Relative Wall Thickness (2D) 0.77 <=0.42 LV Mass (MM Cubed) 309.98 g 88.00-224.00 LV Mass Index (MM Cubed) 146 g/m2 49-115 Relative Wall Thickness (MM) 0.41 LV Fractional Shortening/Ejection Fraction 2D/MM LV Fractional Shortening (2D) 31 % 25-43 LV Fractional Shortening (MM) 46 % 25-43 LV EF (MM Teichholz) 77 % LV EF (2D Teichholz) 59 % LV Diastolic Volume (4C MOD) 83 ml LV EF (4C MOD) 54 % LV Diastolic Volume (2C MOD) 86 ml LV EF (2C MOD) 69 % LV Diastolic Volume (BP MOD) 85 ml 62-150 LV Diastolic Volume Index (BP MOD) 40 ml/m2 34-74 LV Systolic Volume (BP MOD) 32 ml 21-61 LV Systolic Volume Index (BP MOD) 15 ml/m2 11-31 LV EF (BP MOD) 62 % 52-72 LV Diastolic Length (4C) 7.9 cm LV Systolic Length (4C) 6.6 cm LV Stroke Volume (4C MOD) 45 ml Atria Name Value Normal LA Dimensions LA Dimension (MM) 4.7 cm 3.0-4.0 LA Volume (4C A-L) 62 ml LA Volume (BP A-L) 60 ml RA Dimensions RA Systolic Major [place] Length (4C) 4.7 cm 2.1-2.7 RA Area (4C) 12.2 cm2 <=18.0 EchoPAC Name Value Normal AutoEF LVCO_BiP_Q (Tftu7XHC) 3.0 l/min LVEF_BiP_Q (Rxiv0VNN) 64 % LVSV_BiP_Q (Wuoy2HFS) 59 ml LVVED_BiP_Q (Vxpk0LLK) 92 ml LVVES_BiP_Q (Ovhw4PHZ) 33 ml HR_4Ch_Q (Bsxk4TDN) 53 bpm LVCO_4Ch_Q (Lkkm4TQX) 3.2 l/min LVEF_4Ch_Q (Aued9FMU) 64 % LVLd_4Ch_Q (Pvfd2JTK) 7.5 cm LVLs_4Ch_Q (Gvzv8UFD) 6.8 cm LVSV_4Ch_Q (Cvfk1IAF) 61 ml LVVED_4Ch_Q (Lneq1BHG) 95 ml LVVES_4Ch_Q (Mnhl8YZN) 34 ml HR_2Ch_Q (Eyzo6XFO) 53 bpm LVCO_2Ch_Q (Oqcj2EZC) 2.8 l/min LVEF_2Ch_Q (Xarg1KMI) 62 % LVLd_2Ch_Q (Kxsj6DWS) 7.5 cm LVLs_2Ch_Q (Hdoi3FRA) 6.7 cm LVSV_2Ch_Q (Vbmb5XKB) 53 ml LVVED_2Ch_Q (Cyoz0CPQ) 85 ml LVVES_2Ch_Q (Rbdm7AWW) 32 ml UDAY LV Apical Anterior Longitudinal Strain (UDAY) -10.5 % LV Apical Anteroseptal Longitudinal Strain (UDAY) -21.0 % LV Apical Inferior Longitudinal Strain (UDAY) -24.4 % LV Apical Lateral Longitudinal Strain (UDAY) -14.3 % LV Apical Posterior Longitudinal Strain (UDAY) 7.4 % LV Apical Septal Longitudinal Strain (UDAY) -26.4 % AV Closure (UDAY) 467 ms LV Basal Anterior Longitudinal Strain (UDAY) -19.6 % LV Basal Anteroseptal Longitudinal Strain (UDAY) -14.8 % LV Basal Inferior Longitudinal Strain (UDAY) -10.5 % LV Basal Anterolateral Longitudinal Strain (UDAY) -19.5 % LV Basal Inferolateral Longitudinal Strain (UDAY) -20.9 % LV Basal Inferoseptal Longitudinal Strain (UDAY) 4.6 % LV Global Longitudinal Strain (2C UDAY) -16.0 % LV Global Longitudinal Strain (4C UDAY) -16.3 % LV Global Longitudinal Strain (APLAX UDAY) -16.5 % LV Global Longitudinal Strain (UDAY) -16.3 % LV Mid Anterior Longitudinal Strain (UDAY) -16.9 % LV Mid Anteroseptal Longitudinal Strain (UDAY) -24.7 % LV Mid Inferior Longitudinal Strain (UDAY) -19.7 % LV Mid Anterolateral Longitudinal Strain (UDAY) -15.5 % LV Mid Inferolateral Longitudinal Strain (UDAY) -16.8 % LV Mid Inferoseptal Longitudinal Strain (UDAY) -18.5 % Report Signatures
[2025-02-27 10:37] LABS: Basophils Absolute Auto 0.1 K/mm3 (0.0-0.1); Basophils Percent Auto 0.7 % (0.2-1.2); Eosinophils Absolute Auto 0.1 K/mm3 (0-0.3); Eosinophils Percent Auto 1.6 % (0-4.4); Hematocrit 45.7 % (42.0-52.0); Hemoglobin 14.9 g/dL (14.0-18.0); Immature Granulocyte Absolute 0.04 K/mm3 (0.00-0.031); Immature Granulocyte Percent A 0.5 % (0-0.5); Lymphocytes Absolute Auto 2.35 K/mm3 (0.9-3.2); Lymphocytes Percent Auto 30.8 % (18.3-44.2); Mean Corpuscular HGB Conc 32.6 g/dl (32-36); Mean Corpuscular Hemoglobin 31.8 pg (26-34); Mean Corpuscular Volume 97.4 fl (80-100); Mean Platelet Volume 9.6 fl (7.4-10.4); Monocytes Absolute Auto 0.8 K/mm3 (0.1-0.6); Monocytes Percent Auto 10.9 % (2.6-8.5); Neutrophils Absolute Auto 4.2 K/mm3 (1.3-6.7); Neutrophils Percent Auto 55.5 % (45.5-73.1); Platelet Count Result 204 k/mm3 (150-375); Red Blood Count 4.69 M/mm3 (4.6-6.20); Red Cell Distribution Width 13.8 % (11.5-14.5); White Blood Count 7.6 K/mm3 (4.5-10.0)
[2025-02-27 11:00] LABS: Alanine Aminotransferase 22 U/L (6-50); Albumin Level 3.9 g/dL (3.5-5.1); Alkaline Phosphatase 77 U/L (38-126); Anion Gap 7 mmol/L (4-12); Aspartate Amino Transferase 29 U/L (17-59); Bilirubin,Total 0.8 mg/dL (0.2-1.3); Blood Urea Nitrogen 15 mg/dL (9-20); Calcium 9.2 mg/dL (8.4-10.2); Carbon Dioxide 27 mmol/L (22-30); Chloride 107 mmol/L (98-107); Cholesterol 145 mg/dL (0-200); Estimated Glomerular Filt Rate > 60; Glucose 113 mg/dL (65-110); HDL Direct 38 mg/dL; Hemoglobin A1C 5.5 % (<5.7); Sodium 141 mmol/L (137-145); Triglycerides 135 mg/dL (<150)
[2025-02-27 11:11] LABS: LDL Cholesterol Direct 77 mg/dL
== END 2025-02-27 09:27 | disposition home or self-care (01) ==
PROVIDERS: PCP Internal Medicine; Visit Provider Internal Medicine Cardiovascular Disease
DX: E78.5 Hyperlipidemia, unspecified (principal); Z79.899 Other long term (current) drug therapy; R53.83 Other fatigue; I35.0 Nonrheumatic aortic (valve) stenosis; I08.0 Rheumatic disorders of both mitral and aortic valves; I35.8 Other nonrheumatic aortic valve disorders
CPT/HCPCS: 36415; 80053; 80061; 83036; 85025; 93306

== ENCOUNTER 2025-03-10 16:38 | Outpatient (CLI) | payer MEDICARE, SELFPAY ==
--- NOTE | ~2025-03-10 | US_ITS ---
EXAMINATION: US carotid duplex BI DATE: 03/10/2025 18:40 CDT INDICATION: Carotid disease suspected clinically TECHNIQUE: Grayscale, color Doppler, and pulsed Doppler images of the cervical carotid arteries were obtained. The degree of vessel stenosis is placed in one of the following categories: normal, <50%, 50-69%, >=7 0% but less than near-occlusion, near-occlusion, or total occlusion. Note that percent stenosis relative to normal distal artery lumen diameter is indirectly measured fro m velocity measurements as described originally by Arturo, et al. Radiology 2003; 229:340-346 and upda tae by gris Santamaria al STROKE 2012;43(3);915-921. COMPARISON: 06/09/2020 FINDINGS: There is mild atherosclerosis of both carotid arteries. Peak systolic velocity (in cm/s) is detailed below RIGHT: Right common carotid artery (CCA): 55 cm/s. Right internal carotid artery (ICA) PSV: 71 cm/s. Right ICA end-diastolic velocity (EDV): 22 cm/s. Right ICA/CCA PSV ratio is 1.3. Right external carotid artery (ECA): 66cm/s. There is antegrade flow in the right vertebral artery LEFT: Left common carotid artery (CCA): 77 cm/s. Left internal carotid artery (ICA) PSV: 99 cm/s. Left ICA end-diastolic velocity (EDV): 25 cm/s. Left ICA/CCA PSV ratio is 1.3. Left external carotid artery (ECA): 85cm/s. There is antegrade flow in the left vertebral artery. IMPRESSION: 1. Less than 50% stenosis in the right internal carotid artery. 2. Less than 50% stenosis in the left internal carotid artery. Reviewed, dictated and finalized at location A.
--- OUTSIDE RECORDS SUMMARY | 2025-03-10 16:43 | XMS_ITS | Continuity of Care Document ---
Author Organization [facility] Address [address] [place] [address] [place] [address] Phone Care Team Providers Care Financial Management Analyst Name Role Phone Eugene Ta MD Unavailable [...] Copied on Encounter OFFICE/OUTPA TIENT VISIT, EST [facility], [address] [place], [place], [address], [place] tel:[phone] [facility] LEG SWELLING (chief complaint) murmur (chief complaint) Cardiac murmur, unspecifiedEdema 6 Keyon Knight. [address] [facility] [place], [address] , [place]. tel:[phone] Referring Provider: [address], [place], [place], [address]. tel:[phone] PREV VISIT, EST, 65 & OVER [facility], [address], [place], [place], [address], [place] [phone] [facility] PHysical (chief complaint) Encounter for general adult medical exam w abnormal findingsMixed hyperlipidemiaAbnor mal weight loss 6 Keyon Knight. [address], [place], [place], [address] , [place]. [phone] Referring Provider: Del[address], [place], [place], [address]. tel:[phone] PREV VISIT, EST, 65 & OVER [facility], [address], [place], [place], [address], [place] [phone] [facility] Physical (chief complaint) Dietary surveillance and counselingRoutine Medical ExamRoutine Medical Exam 5 Keyon Knight. [address], [place], [place], [address] , [place]. [phone] Referring Provider: [address], [place], [place], [address]. tel:[phone] OFFICE/OUTPA TIENT VISIT, EST [facility], [address], [place], [place], [address], [place] [phone] [facility] UTI (chief complaint) HLP (chief complaint) colon CA (chief complaint) Dietary surveillance and counselingHEMATURIA NOSMalignant neoplasm of other specified sites of large intestineOther and unspecified hyperlipidemia 0 4 Keyon Knight. [address], [place], [place], [address] , [place]. [phone] Referring Provider: [address], [place], [place], [address]. tel:[phone] [facility], [address], [place], [place], [address], tel:[phone] [facility] Routine Medical Exam 4 Keyon Knight. [address], [place], [place], [address] , . tel:[phone] OFFICE/OUTPA TIENT VISIT, EST [facility], [address], [place], [place], [address], tel:[phone] [facility] HLP (chief complaint) colon CA (chief complaint) Other and unspecified hyperlipidemiaDieta ry surveillance and counselingMalignant neoplasm of other specified sites of large intestine 3 Keyon Knight. [address], [place], [place], [address] , . tel:[phone] Referring Provider: Eugene Ta, [address], [place], [place], [address]. tel:[phone] Family History Family Member Type Diagnosis Age At Onset Mother Problem (finding) Cancer - unkonwn Brother Problem (finding) Cancer - liver CA, alco hol Father Problem (finding) suicide Brother Problem (finding) Cancer, pancreas Payers Payer name Insurance type Covered green party ID Authoriza tion(s) No Information Social [...] Diet Related to Dietary Surveillance and Counseling Decrease caloric intake Related to Dietary surveillance counseling Physical activity counseling Rel ated to Dietary surveillance counseling Dietary counseling Related to Di etary surveillance counseling Decrease caloric intake Related to Dietary surveillance counseling Decrease caloric intake Related to Dietary surveillance counseling Dietary counseling Related to Di etary surveillance counseling Assessments Type Assessment Date assessment Cardiac murmur, unspecified assessment Edema Mental Status Date Cognitive Assessment Orientation - Wilbur ed to time, place, person, situation.
--- OUTSIDE RECORDS SUMMARY | 2025-03-10 16:43 | XMS_ITS | Continuity of Care Document ---
Author Organization [facility] Address [address] [place] [address] [place] [address] Phone Care Team Providers Care Application Systems Engineer Name Role Phone Heidi WELCH Daren Unavailable Unavailable Procedures Procedure Date Post-op Follow-up Visit Post-op Follow-up Visit Remove Cataract, Insert Lens Office Consultation IOLMaster Advance Directives Directive Yes / No Effective Date File Name No Information Encounters Encounter Description Practice Location Reason(s) For Visit Diagnoses Date Provider Providers Copied on Encounter [facility], [address], [place], [place], [address], tel:[phone] SEC Lexy Montenegro No Information 7 Heidi Mercedes. [address], [id number], . tel:[phone] Referring Provider: Thom Guardado OD F, [address] [facility] [place] [address], [place], [address]. tel:[phone] [facility], [address], [place], [place], [address], tel:[phone] SEC Lexy Montenegro No Information 7 Heidi Mercedes. [address], [id number], . tel:[phone] Referring Provider: Thom Guardado OD F, [address] [facility] [place] [place] [address], [place], [address]. tel:[phone] [facility], [address], [place], [place], [address], tel:[phone] [facility] No Information [address] Onamiagareth Thomas. [address] [facility], [address], [place], [place], [address], [place]. tel:[phone] Referring Provider: Thom Guardado OD F, [address] [facility] [address], [place], [address]. tel:[phone] Office Consultation [facility], [address], [place], [place], [address], [place] tel:[phone] SEC Rebuck N Moni No Information 7 Dianna William. [address] [facility] [facility], [address], [place], [place], [address], [place]. tel:[phone] Referring Provider: Thom Guardado OD F, [address] [facility] [address], [place], [address]. tel:[phone] Family History Family Member Type Diagnosis Age At Onset No Information Payers Payer name Insurance type Covered libertarian ID Authoriza tion(s) No Information Social History [...]
--- OUTSIDE RECORDS SUMMARY | 2025-03-10 16:43 | XMS_ITS | Clinical Summary ---
Author Organization [facility] Address [address] [address] Care Team Providers Care Certified Phlebotomist Name Role Phone Unavailable Primary Care Provider Unavailabl e Source Comments [facility],non-owned Affiliates and Associated Physician Practices is amultiple site organization consisting of ambulatory clinics and hospital sitesin [place], [place], [place] and [place]. This disclosure is being madepursuant to the Care Everywhere program and may not contain all information available regarding this patient. Last updated 18.[facility] Allergies No known active allergies Medications * Be aware that medications may not be up to date on this document. Alwaysverify current medications with the patient. lovastatin (MEVACOR) 10 MG tablet Take 10 mg by mouth at bedtime. Active [place]-3 Fatty Acids (FISH OIL) 500 MG CAPS [...] 11:50 AM CDT Height 180.3 cm (5' 10.98) 03/31/2015 11:50 AM CDT Body Mass Index [...] this topic Insurance UHC MANAGED MEDICARE ADV AETNA MEDICARE ADV SELF PAY NO INSURANCE Member Subscriber Plan / Payer (Ef fective for All Dates) Name:Surya Mclean Member ID:Not on file Relation to Subscriber:Not on file Name:SURYA MCLEAN Subscriber ID:Not on file (Home) Address: [address] [place] [address] Payer ID:Not on file Group ID:Not on file Type:Self Pay Address: [place], [place]
== END 2025-03-10 16:39 | disposition home or self-care (01) ==
PROVIDERS: PCP Internal Medicine; Visit Provider Internal Medicine
DX: I65.23 Occlusion and stenosis of bilateral carotid arteries (principal); I35.0 Nonrheumatic aortic (valve) stenosis; R01.1 Cardiac murmur, unspecified; R09.89 Other specified symptoms and signs involving the circulatory and respiratory systems
CPT/HCPCS: 93880